=== PATIENT | male | born 1940 | race Caucasian/White ===

== ENCOUNTER 2017-03-04 11:47 | Inpatient (IN) ==
--- NOTE | 2017-03-04 13:02 | Emergency Department Note ---
Lisa Decker Mantricia, am scribing for, and in the presence of, Robert Sahni MD 12:51. Kaitlyn Decker James D, MD, personally performed the services described in this documentation, ascribed by Pari Gonzalez in my presence, and it is both accurate and complete . Arrival - Arrival Chief Complaint: Weakness Stated Complaint: SPITTING UP BLOOD, COUGHING, WEAKNESS, ABD SORE ED Nursing Triage Note: C/O WEAKNESS AND COUGHING UP BLOOD WITH ONSET LAST WEEK. Mode of Arrival: Ambulatory Limitations: No Limitations Source: Patient Time Seen by Provider: 03/04/17 12:44 - History of Present Illness HPI Narrative: Pt is a 76 y/o white male arriving to ED with c/o productive cough that onset a week ago. He states that he's been sick for a while now. The cough worsened in the last few days and today he began coughing up blood. He admits that he quit smoking 8 years ago. He reports no other complaints to ED. patient has a history of 80 pounds weight loss unintentional. Onset (ago): week(s) Consistency: constant Severity: mild Allergies/Adverse Reactions: Allergies Allergy/AdvReac Type Severity Reaction Status Date / Time No Known Allergies Allergy Unverified 05/21/16 23:06 Home Medications: Home Medications Medication Instructions Recorded Confirmed Type Albuterol Inhaler [Proventil 2 puff INH Q4H PRN 05/22/16 07/06/16 History Inhaler] Magnesium Oxide 800 mg PO DAILY 05/22/16 07/06/16 History Nitroglycerin Sl Tab [Nitrostat] 0.4 mg SL Q5M PRN 05/22/16 07/06/16 History [place]-3 Fatty Acids [Fish Oil 2,000 mg PO BID 05/22/16 07/06/16 History Concentrate] Tamsulosin HCl 0.8 mg PO BEDTIME 05/22/16 07/06/16 History Zinc Sulfate 220 mg PO DAILY 05/22/16 07/06/16 History Review of System - Review of System 12 point system: reviewed and no additional remarkable complaints except as stated - Review of System Constitutional: Absent: chills, diaphoresis Eyes: Absent: discharge, pain Respiratory: Present: cough (with blood) Cardiovascular: Absent: chest pain, palpitations Gastrointestinal: Absent: abdominal pain, nausea, vomiting Medical,Surgical,& Family Hx - Medical History Neurology: History of: Peripheral Neuropathy HEENT: History of: Eye Problem (redness to west eyes) Respiratory: History of: COPD Genitourinary: History of: Prostate Problems Musculoskeletal: History of: Back/Neck Problems - Surgical History Cardiac Surgeries: Sugical HX of: Cardiac Catheterization (2007) - Family History Family History: Reports;: Family Heart Disease - Social History Smoking Status: Current every day smoker Frequency of Alcohol Use: None Type of Drug Use: None Exam Physical Examination: GENERAL: This is a well-nourished, well-developed male in no apparent distress. VITAL SIGNS: HEENT: Head is normocephalic and atraumatic. Pupils are equally round and reactive to light. Extraocular movement are intact. Oropharynx is benign with moist mucous membranes. NECK: Neck is soft and supple without tenderness. There are no masses. There is no lymphadenopathy. LUNGS: Lungs are clear to auscultation bilaterally. Chest rises symmetrically. There is no chest wall tenderness. CV: Heart is regular rate and rhythm without murmurs, rubs, or gallops. ABDOMEN: Abdomen is soft, non-tender to palpation. There are no abnormal masses palpated. There is no organomegaly. Bowel sounds are present and active. SKIN: Skin is warm and dry. No rash. EXTREMITIES: Patient has full range of motion without tenderness. There is no pedal edema. NEUROLOGIC: Awake, alert, and oriented x4. Cranial nerves II through XII are grossly intact. There are no motorsensory deficits. PSYCHIATRIC: Normal affect. Normal mood. Vital Signs: Vital Signs Temperature 99.7 F H 03/04/17 11:55 Pulse Rate 94 H 03/04/17 11:55 Respiratory Rate 20 03/04/17 11:55 Blood Pressure 131/88 03/04/17 11:55 O2 Sat by Pulse Oximetry 91 L 03/04/17 11:55 Course - Consultations Consultation #1: Discussed with Dr. Garcia. He will be seen in the emergency department. Consider EKOS. Time: 14:27 Consultation #2: Discussed with hospitalist. He will be admitted to their service. Time: 14:59 Results - Labs CBC & BMP: 03/04/17 13:23 03/04/17 13:23 Lab Results: I have reviewed the patients labs - EKG EKG results: interpreted by ERMD - Diagnostic Findings Procedure: Chest x-ray: image reviewed by me (Left pleural effusion, increased pulmonary markings bilaterally.), CT - chest: image reviewed by me (Bilateral pulmonary emboli) Disposition Clinical Impression: Hemoptysis, Pulmonary thromboembolism Case discussed with: patient Disposition: Still a Patient Condition: Stable Time of Disposition: 14:27
--- NOTE | 2017-03-04 13:18 | XRay Report ---
Exam: Chest 2 views Date: March 04, 2017 at 12:56 PM Comparison: Right rib x-rays July 06, 2016 Reason: Cough Findings: The cardiac silhouette is normal in size. There are minimal opacities within both lower lung zones. This is favored to represent atelectasis and/or scarring, but there could also be pneumonia within the left lower lung zone. No pneumothorax is identified, but there is minimal left pleural fluid and possible minimal right pleural fluid. No acute osseous process is seen. Impression: 1. There are minimal opacities within both lower lung zones, mainly on the left. This likely represents atelectasis and/or scarring, but there could also be pneumonia on the left. 2. Minimal left pleural fluid and possible minimal right pleural fluid. PROCEDURE INTERPRETED AT [facility] [place] DEPARTMENT OF RADIOLOGY Final Report Signed by: Dr. Loy Moore
[2017-03-04 13:26] LABS: Basophils # 0.1 10*3/uL (0.0-0.2); Basophils % 0.6 % (0.0-0.8); Eosinophils # 0.2 10*3/uL (0.0-0.87); Eosinophils % 1.3 % (0.00-10.9); Hemoglobin 15.1 GM/DL (14.0-18.0); Immature Granulocytes % 0.3 %; Immature Granulocytes Absolute 0.04 #; Lymphocytes # 1.7 10*3/uL (1.4-4.0); Lymphocytes % 14.3 % (21.2-54.2); Mean Corpuscular HGB Conc 34.3 GM/DL (32-36); Mean Corpuscular Hemoglobin 31 PG (27-34); Mean Corpuscular Volume 91.1 FL (87-102); Monocytes # 1.2 10*3/uL (0.11-0.8); Monocytes % 10.2 % (1.7-12.7); Neutrophils # 8.9 10*3/uL (1.4-7.4); Neutrophils % 73.3 % (38.7-73.9); Platelet Count 185 T/CUMM (130-400); Red Blood Count 4.83 MC/CUMM (3.8-5.5); White Blood Count 12.2 T/CUMM (4-12)
[2017-03-04 13:36] LABS: INR 1.1; PT Patient Result 12.1 SECS; Partial Thromboplastin Time 32.8 SECS (0-40)
[2017-03-04 14:06] LABS: Albumin 3.2 G/DL (3.4-5.0); Calcium 8.7 MG/DL (8.5-10.1); Osmolality,Calculated 276.5 MOS/KG (273-304); Potassium 4.1 MMOL/L (3.5-5.1); Total Protein 6.2 G/DL (6.4-8.3)
--- NOTE | 2017-03-04 14:42 | CT Report ---
Exam: CT chest w con Date: 03/04/2017 12:48 PM Comparison: Chest x-ray 03/04/2017 Indication: Hemoptysis Technique:[Sequential axial scans of the chest were obtained following the injection of 80 cc Omnipaque 350. Coronal and sagittal 2-D reconstructions were obtained. Total DLP: 308.70.] Findings: The heart is enlarged with coronary artery calcifications/stents. No evidence of aortic dissection. Multiple filling defects are identified in the pulmonary arteries bilaterally. Saddle emboli in the distal main pulmonary arteries. Thrombus extends into the lobar, segmental, subsegmental pulmonary arteries with involvement of all lobes. Small pleural effusions are noted with pleural-based parenchymal findings in the lower lobes, especially the left and the and smaller findings in the lingula and right middle lobe. Bullous emphysema with predominant paraseptal emphysema. No chest lymphadenopathy. Impression: Extensive bilateral pulmonary emboli with associated small pleural effusions and findings consistent with pulmonary infarction. It is difficult to exclude other pleural-based pathology and short-term follow-up CT may be helpful for further evaluation. Underlying bullous emphysema. Coronary artery calcifications/stents. Findings were discussed with patient's nurse at 2:35 PM on 03/04/2017. Critical test results This CT exam was performed using one or more the following dose reduction techniques: Automated exposure control, adjustment of the MA and/or KV according to patient size, or use of iterative reconstruction technique. PROCEDURE INTERPRETED AT [facility] DEPARTMENT OF RADIOLOGY Final Report Signed by: Dr. Isha Wang
--- NOTE | 2017-03-04 14:56 | Cardiology Consult Note ---
<Valarie Solis E - Last Filed: 03/04/17 15:21> Assessment and Plan - Time spent with patient Time spent with patient: Greater than 30 minutes Time spent discussing smoking cessation with patient: 3 to 10 minutes (1) CAD (coronary artery disease) Status: Chronic Assessment and plan: SEE PLAN OF CARE LISTED BELOW Current Visit: Yes (2) Hypertension Status: Chronic Assessment and plan: SEE PLAN OF CARE LISTED BELOW Current Visit: Yes (3) Dyslipidemia Status: Chronic Assessment and plan: SEE PLAN OF CARE LISTED BELOW Current Visit: Yes (4) Ischemic cardiomyopathy Status: Chronic Assessment and plan: SEE PLAN OF CARE LISTED BELOW Current Visit: Yes (5) Tobacco abuse Status: Chronic Assessment and plan: SEE PLAN OF CARE LISTED BELOW Current Visit: Yes (6) Edema Status: Chronic Assessment and plan: SEE PLAN OF CARE LISTED BELOW Current Visit: Yes (7) Hemoptysis Status: Acute Assessment and plan: SEE PLAN OF CARE LISTED BELOW Current Visit: Yes (8) Pulmonary thromboembolism Status: Acute Assessment and plan: SEE PLAN OF CARE LISTED BELOW Current Visit: Yes History of Present Illness - Data of Consult Patient: new to practice Consult date: 03/04/17 Requesting Physician: Robert Sahni - Consult Narrative Reason for consult: PE, hemoptysis History of present illness: [employer]LE [employer]: (NEW) DR. TINOCO Mr. Bradshaw, 76WM, is not attached to a wax cutter. Risk factors include: known CAD (S/P PCI LAD December [address] Cowan), dyslipidemia, tobaccoism. History of mild ischemic cardiomyopathy, chronic pain. Patient presented to the emergency department at [facility] today after experiencing hemoptysis this morning. Patient has been short of breath and fatigued for approximately 7 years. Approximately 2 months ago his shortness of breath worsened but chose not to seek medical attention until this morning when he began to experience blood tinged sputum with coughing. He reported to the emergency department and, by CT chest, was found to have extensive bilateral pulmonary emboli with associated small pleural effusions. Abnormal CT. (See report). Patient acknowledges he has had chills for the past several months. He reports a 90 pound weight loss occurring approximately 2 years ago. He states he intentionally changed his diet for 3 months, lost 90 pounds and then return to his usual diet with no additional weight loss. He does not have a primary care provider. He does have an extensive history of tobaccoism but reports he has not been smoking the past several years. He is having no chest pain, heaviness, tightness. He previously saw Dr. Cowan then transitioned to Dr. Simpson. He has not followed up with any wax cutter in over 5 years. Patient has had bilateral lower extremity edema since taking Lyrica for neuropathy several years ago. He states his left lower extremity has always been more edematous than the right lower extremity. He has never been tested for DVT. He states he is statin intolerant but cannot elaborate. Echocardiogram has been ordered as well as venous dopplers of bilateral lower extremities. Dr. Tinoco has seen, evaluated the patient and the CT chest. He is not a candidate for EKOs and we cardiology will be happy to follow along as needed. ASSESSMENT/PLAN: 1. BILATERAL PULMONARY EMBOLI - See above plan of care. WIll need formal anti -coagulation 2. KNOWN CAD - S/P LAD 2006. (See [facility] report dictated below) 3. HYPERTENSION - will adjust medications accordingly during the hospitalization 4. DYSLIPIDEMIA - reports statin intolerance. Will check a fasting lipid profile tomorrow morning. 5. EDEMA - venous ultrasound bilateral lower extremities 6. TOBACCOISM -greater than 5 minutes was spent today discussing the merits of tobacco cessation 7. ISCHEMIC CARDIOMYOPATHY - last echocardiogram on records reveals an EF of 40%. Echocardiogram has been ordered. December 21, 2016 [facility] Impression (Dr. Cowan): 1. Significant disease involving the proximal LAD after diagonal. Acute occlusion, acute ID 2. Significant disease involving a small diagonal 3. Mild to moderate disease involving the right coronary artery 4. Moderate global left ventricular systolic dysfunction with regional wall motion abnormalities of apical and inferoapical dyskinesis, EF 40% 5. Moderate elevation LVEDP CC: - Home Medications and Allergies Home Medications: Home Medications Medication Instructions Recorded Confirmed Type Albuterol Inhaler [Proventil 2 puff INH Q4H PRN 05/22/16 03/04/17 History Inhaler] Nitroglycerin Sl Tab [Nitrostat] 0.4 mg SL Q5M PRN 05/22/16 03/04/17 History [place]-3 Fatty Acids [Fish Oil 2,000 mg PO BID 05/22/16 03/04/17 History Concentrate] Tamsulosin HCl 0.8 mg PO QAM 05/22/16 03/04/17 History Zinc Sulfate 220 mg PO DAILY 05/22/16 03/04/17 History Finasteride 5 mg PO DAILY 03/04/17 03/04/17 History Magnesium Oxide 840 mg PO DAILY 03/04/17 03/04/17 History Pregabalin [Lyrica] 50 mg PO TID 03/04/17 03/04/17 History Allergies/Adverse Reactions: Allergies Allergy/AdvReac Type Severity Reaction Status Date / Time No Known Allergies Allergy Unverified 05/21/16 23:06 Review of systems: REVIEW OF SYSTEMS: See HPI - Constitutional Constitutional: Present: Fatigue. Chills, occasional night sweats. Absent: syncope, anorexia, night sweats - EENT Eyes: Absent: blurry vision, loss of vision, diplopia Ears: Absent: decreased hearing, ear pain, ear discharge - Cardiovascular Cardiovascular: Denies chest pain with exertion. Dyspnea on exertion, edema, palpitations. Chest pain with deep breath. - Respiratory Respiratory: Present: JORDAN, cough and occasional hemoptysis per. Absent: wheezing - Gastrointestinal Gastrointestinal: Present: constipation. Absent: abdominal pain, hematemesis , hematochezia, melena, change in bowel habits, nausea - Genitourinary Genitourinary: Absent: difficulty urinating, dysuria, urinary hesitancy, flank pain - Musculoskeletal Musculoskeletal: Present: back pain Absent: joint swelling, muscle cramps, muscle weakness - Neurological Neurological: Present: normal gait without frequent falls. Absent: dizziness, hemiparesis - Psychiatric Psychiatric: Absent: anxiety, depression, difficulty concentrating - Endocrine Endocrine: Present: fatigue. Absent: cold intolerance, heat intolerance, polyuria, polyphagia, polydipsia - Hematologic/Lymphatic Hematologic/Lymphatic: Present: easy bruising. Absent: easy bleeding -Integumentary Integumentary: Absent: lesions, rashes, skin breakdown Medical,Surgical,& Family Hx - Medical History Cardio: History of: CAD, Hypertension, ID No history of: Cardiac Dysrhythmia Neurology: History of: Peripheral Neuropathy HEENT: History of: Eye Problem (redness to west eyes) Respiratory: History of: COPD Genitourinary: History of: Prostate Problems Musculoskeletal: History of: Back/Neck Problems - Surgical History Cardiac Surgeries: Sugical HX of: Cardiac Catheterization (2007) - Family History Family History: Reports;: Family Heart Disease - Social History Smoking Status: Current every day smoker Have you smoked in the last 12 months: Yes Time spent discussing smoking cessation with patient: 3 to 10 minutes Frequency of Alcohol Use: None Type of Drug Use: None Physical Examination Vital Signs Temp Pulse Resp BP Pulse Ox 99.7 F H 94 H 20 131/88 91 L 03/04/17 11:55 03/04/17 11:55 03/04/17 11:55 03/04/17 11:55 03/04/17 11:55 General: [Appears well with no apparent distress.] [Pleasant and cooperative. ] [Appears comfortable.] HEENT: [PERRL, normocephalic, atraumatic. Poor dentition noted. Mucous membranes moist. No jaundice noted. Conjunctiva moist and clear, sclerae anicteric] Neck: No JVD/HJR, no thyromegaly or lymphadenopathy noted. No carotid bruit appreciated Cardiac: [Regular rate and rhythm.] [No obvious murmur rub or gallop.] Lungs: [Clear to auscultation without accessory muscle use to assist the respiratory pattern.] Oxygen in use via nasal cannula Abdomen: Soft, bowel sounds normoactive. Nontender and nondistended. No abdominal bruit or thrill noted. No masses noted. Musculoskeletal: No fluid collection. Decreased range of motion is noted. Extremities: No clubbing, cyanosis noted. [Left lower extremity edema 2+, right lower extremity edema 1+] Upper extremity pulses 2+. Lower extremity pulses 1+. Capillary refill less than 3 seconds. Skin: No unusual lesions or rashes. No skin breakdown appreciated. Neuro: Awake, alert and oriented 3. Moves all extremities well without hemiparesis or paralysis. No essential tremor is appreciated. Result/EKG - Labs CBC & BMP: 03/04/17 13:23 03/04/17 13:23 Lab Results: I have reviewed the past 24 hour labs Labs: Laboratory Results - last 24 hr 03/04/17 03/04/17 03/04/17 13:23 13:23 13:23 WBC 12.2 H RBC 4.83 Hgb 15.1 Hct 44.0 MCV 91.1 MCH 31 MCHC 34.3 RDW 13.0 Plt Count 185 MPV 9.0 L Neut % (Auto) 73.3 Lymph % (Auto) 14.3 L [place] % (Auto) 10.2 Eos % (Auto) 1.3 Baso % (Auto) 0.6 Neut # (Auto) 8.9 H Lymph # (Auto) 1.7 [place] # (Auto) 1.2 H Eos # (Auto) 0.2 Baso # (Auto) 0.1 Immature Gran % 0.3 Nucleated RBC % 0.0 Immature Gran # 0.04 Nucleated RBCs # 0.00 INR 1.1 PT Patient/Control Mix 12.1 Circ Anticoag PTT 32.8 Sodium 139 Potassium 4.1 Chloride 105 Carbon Dioxide 27 Anion Gap 11.1 BUN 12 Creatinine 1.20 GFR Calculation 72 BUN/Creatinine Ratio 10.00 Glucose 104 Calculated Osmolality 276.5 Calcium 8.7 Total Bilirubin 1.00 AST 13 ALT 17 Alkaline Phosphatase 66 Total Protein 6.2 L Albumin 3.2 L Globulin 3.0 Albumin/Globulin Ratio 1.0 L - Diagnostic Findings Procedure: Chest x-ray: report reviewed by me, CT - chest: report reviewed by me , Ultrasound: pending - EKG EKG results: interpreted by me EKG shows: sinus rhythm <Dhiraj Tinoco - Last Filed: 03/05/17 06:45> History of Present Illness - Consult Narrative History of present illness: Mr. Bradshaw is a 76 year old male CC: Annabella Her MD Physical Examination Vital Signs Temp Pulse Resp BP Pulse Ox 99.7 F H 94 H 20 131/88 91 L 03/04/17 11:55 03/04/17 11:55 03/04/17 11:55 03/04/17 11:55 03/04/17 11:55 Result/EKG - Labs CBC & BMP: 03/05/17 04:12 03/05/17 04:12 Labs: Laboratory Results - last 24 hr 03/04/17 03/04/17 03/04/17 13:17 13:23 13:23 WBC 12.2 H RBC 4.83 Hgb 15.1 Hct 44.0 MCV 91.1 MCH 31 MCHC 34.3 RDW 13.0 Plt Count 185 MPV 9.0 L Neut % (Auto) 73.3 Lymph % (Auto) 14.3 L [place] % (Auto) 10.2 Eos % (Auto) 1.3 Baso % (Auto) 0.6 Neut # (Auto) 8.9 H Lymph # (Auto) 1.7 [place] # (Auto) 1.2 H Eos # (Auto) 0.2 Baso # (Auto) 0.1 Immature Gran % 0.3 Nucleated RBC % 0.0 Immature Gran # 0.04 Nucleated RBCs # 0.00 INR 1.1 PT Patient/Control Mix 12.1 Circ Anticoag PTT 32.8 Sodium Potassium Chloride Carbon Dioxide Anion Gap BUN Creatinine GFR Calculation BUN/Creatinine Ratio Glucose Calculated Osmolality Calcium Magnesium Total Bilirubin AST ALT Alkaline Phosphatase Total Protein Albumin Globulin Albumin/Globulin Ratio Triglycerides 96 Cholesterol 168 LDL Cholesterol 125.0 VLDL Cholesterol 19.2 HDL Cholesterol 31 L Heart Disease Risk Ratio 5.42 Urine Color Urine Appearance Urine pH Ur Specific [place] Urine Protein Urine Glucose (UA) Urine Ketones Urine Blood Urine Nitrate Urine Bilirubin Urine Urobilinogen Urine Leukocytes Urine RBC Urine WBC Ur Culture Indicated? 03/04/17 03/04/17 03/05/17 13:23 22:40 04:12 WBC 9.7 RBC 4.74 Hgb 15.0 Hct 44.1 MCV 93.0 MCH 32 MCHC 34.0 RDW 12.8 Plt Count 192 MPV 9.5 L Neut % (Auto) 66.7 Lymph % (Auto) 17.0 L [place] % (Auto) 10.3 Eos % (Auto) 5.0 Baso % (Auto) 0.7 Neut # (Auto) 6.5 Lymph # (Auto) 1.7 Crook # (Auto) 1.0 H Eos # (Auto) 0.5 Baso # (Auto) 0.1 Immature Gran % 0.3 Nucleated RBC % 0.0 Immature Gran # 0.03 Nucleated RBCs # 0.00 INR PT Patient/Control Mix Circ Anticoag PTT Sodium 139 Potassium 4.1 Chloride 105 Carbon Dioxide 27 Anion Gap 11.1 BUN 12 Creatinine 1.20 GFR Calculation 72 BUN/Creatinine Ratio 10.00 Glucose 104 Calculated Osmolality 276.5 Calcium 8.7 Magnesium Total Bilirubin 1.00 AST 13 ALT 17 Alkaline Phosphatase 66 Total Protein 6.2 L Albumin 3.2 L Globulin 3.0 Albumin/Globulin Ratio 1.0 L Triglycerides Cholesterol LDL Cholesterol VLDL Cholesterol HDL Cholesterol Heart Disease Risk Ratio Urine Color Yellow Urine Appearance Clear Urine pH 7.0 Ur Specific [place] 1.019 Urine Protein Negative Urine Glucose (UA) Negative Urine Ketones Negative Urine Blood Moderate Urine Nitrate Negative Urine Bilirubin Negative Urine Urobilinogen < 2.0 H Urine Leukocytes Negative Urine RBC 7 Urine WBC 1 Ur Culture Indicated? Not indicated 03/05/17 03/05/17 04:12 04:12 WBC RBC Hgb Hct MCV MCH MCHC RDW Plt Count MPV Neut % (Auto) Lymph % (Auto) Cro[place] % (Auto) Eos % (Auto) Baso % (Auto) Neut # (Auto) Lymph # (Auto) [place] # (Auto) Eos # (Auto) Baso # (Auto) Immature Gran % Nucleated RBC % Immature Gran # Nucleated RBCs # INR PT Patient/Control Mix Circ Anticoag PTT Sodium 139 139 Potassium 4.2 4.4 Chloride 104 104 Carbon Dioxide 27 27 Anion Gap 12.2 12.4 BUN 14 15 Creatinine 1.20 1.20 GFR Calculation 73 73 BUN/Creatinine Ratio 11.00 12.00 Glucose 102 104 Calculated Osmolality 277.5 277.5 Calcium 8.3 L 8.3 L Magnesium 2.2 Total Bilirubin AST ALT Alkaline Phosphatase Total Protein Albumin Globulin Albumin/Globulin Ratio Triglycerides 107 Cholesterol 165 LDL Cholesterol 120.0 VLDL Cholesterol 21.4 HDL Cholesterol 26 L Heart Disease Risk Ratio 6.35 Urine Color Urine Appearance Urine pH Ur Specific [place] Urine Protein Urine Glucose (UA) Urine Ketones Urine Blood Urine Nitrate Urine Bilirubin Urine Urobilinogen Urine Leukocytes Urine RBC Urine WBC Ur Culture Indicated?
[2017-03-04] MEDS ORDERED: DOCUSATE SODIUM 100 MG CAPSULE PO PRN (15:38)
[2017-03-04] MEDS ORDERED: ONDANSETRON 4 MG/2 ML VIAL IV PRN (15:38)
[2017-03-04] MEDS ORDERED: PROMETHAZINE 25 MG/1 ML VIAL IM PRN (15:38)
[2017-03-04] MEDS ORDERED: diphenhydrAMINE CAP 25 MG CAPSULE PO PRN (15:38)
[2017-03-04] MEDS ORDERED: MORPHINE 2 MG/1 ML SYRINGE IV PRN (15:38)
[2017-03-04] MEDS ORDERED: ACETAMINOPHEN 325 MG TABLET PO PRN ×2 (15:38)
[2017-03-04] MEDS ORDERED: guaiFENesin/DM ER 600-30 MG TABLET PO PRN (15:38)
[2017-03-04] MEDS ORDERED: NON-FORMULARY MEDICATION (Albuterol Inhaler 2 PUFF) INH PRN (15:42)
--- NOTE | 2017-03-04 15:56 | Ultrasound Report ---
Referring physician: Annabella Her MD Exam: Bilateral lower extremity venous ultrasound Date: March 04, 2017 Comparison: None Reason: Lower extremity edema Technique: Duplex scan of the bilateral lower extremity veins was performed using B-Mode/grayscale imaging and Doppler spectral analysis and color flow. Ultrasound images were captured and stored. Findings: There is no evidence of thrombus within the left or right common femoral veins, saphenous veins, superficial femoral veins or popliteal veins. Normal compression and augmentation are present throughout. Normal color flow and spectral analysis are observed. Impression: No evidence of deep venous thrombosis within either lower extremity. PROCEDURE INTERPRETED AT [facility] DEPARTMENT OF RADIOLOGY Final Report Signed by: Dr. Loy Moore
[2017-03-04 16:00] LABS: Risk Ratio 5.42; VLDL CHOLESTEROL 19.2 MG/DL
--- NOTE | 2017-03-04 16:18 | Hospitalist History & Physical ---
Assessment and Plan - Time spent with patient Time spent with patient: Greater than 30 minutes (1) Hemoptysis Status: Acute Assessment and plan: 76-year-old white male with history of tobacco abuse, CAD status post stenting 10 years ago, and proximal date hypertrophy admitted by the hospitalist service with hemoptysis due to pulmonary thromboembolism bilaterally. Cardiology is already been consulted and he is not a candidate for EKOS. Patient will be started on Eliquis 10 mg p.o. twice daily and admitted to the unit overnight for observation. With patient's 80 pound weight loss we will go ahead and check a CT of the abdomen and pelvis with contrast in the morning due to patient already being exposed to contrast today. Will restart his home medicines and monitor his breathing and blood pressures. Echo has been ordered and is pending. Pulmonary has also been consulted for evaluation. Dr. Sherman will see and examined patient and further recommendations to follow. Current Visit: Yes (2) Pulmonary thromboembolism Status: Acute Current Visit: Yes (3) CAD (coronary artery disease) Status: Chronic Current Visit: Yes History of Present Illness Chief complaint: Coughing up blood History of present illness: Mr. Bradshaw is a 76 year old white male with history of chronic tobacco abuse, dysuria and CAD presenting to the ED with 1 week history of progressive cough and hemoptysis. Patient states he has been sick for a while and has lost approximately 80 pounds over the last year. He had a CT and abdomen and pelvis done on 05/21/2016 that showed prostate enlargement, sigmoid diverticulosis. He states he has had a cough for several months but it worsened in the last week and this morning he woke up coughing up blood. Patient has had bilateral lower extremity swelling for the last several years. Patient denies headache and blurry vision, chest pain, abdominal pain, constipation or diarrhea. Patient CT of the chest shows extensive bilateral pulmonary emboli with associated small pleural effusions and findings consistent with pulmonary infarction. He also has underlying bullous emphysema. His lower extremity Dopplers are negative for DVT. Cardiology has already seen the patient and feel he is not a candidate for EKOS. Patient's case has been discussed with Dr. Sahni the ED physician and Dr. Sherman the admitting hospitalist and it was agreed patient would be admitted for further evaluation and treatment. Home Medications Medication Instructions Recorded Confirmed Type Albuterol Inhaler [Proventil 2 puff INH Q4H PRN 05/22/16 07/06/16 History Inhaler] Magnesium Oxide 800 mg PO DAILY 05/22/16 07/06/16 History Nitroglycerin Sl Tab [Nitrostat] 0.4 mg SL Q5M PRN 05/22/16 07/06/16 History [place]-3 Fatty Acids [Fish Oil 2,000 mg PO BID 05/22/16 07/06/16 History Concentrate] Tamsulosin HCl 0.8 mg PO BEDTIME 05/22/16 07/06/16 History Zinc Sulfate 220 mg PO DAILY 05/22/16 07/06/16 History Allergies Allergy/AdvReac Type Severity Reaction Status Date / Time No Known Allergies Allergy Unverified 05/21/16 23:06 Medical,Surgical,& Family Hx - Medical History Neurology: History of: Peripheral Neuropathy HEENT: History of: Eye Problem (redness to west eyes) Respiratory: History of: COPD Genitourinary: History of: Prostate Problems Musculoskeletal: History of: Back/Neck Problems - Surgical History Cardiac Surgeries: Sugical HX of: Cardiac Catheterization (2007) Abdominal Surgeries: Surgical HX of: Cholecystectomy - Family History Family History: Reports;: Family Heart Disease - Social History Smoking Status: Former smoker Frequency of Alcohol Use: None Type of Drug Use: None Marital Status: Lives With:: Alone Functional capacity: independent ambulation Review of systems: A complete 10 system review of systems was obtained and pertinent positives and negatives per HPI Exam - Constitutional Vitals: Period Temp Pulse Resp BP Sys/Guerra Pulse Ox Last 24 Hr 99.7 F 94 20 131/88 91 Exam: Constitutional System: No distress. No tremulousness. Head: Normocephalic, atraumatic. Ears, Nose and Throat System: No evidence of Otitis or Mastoiditis. No epistaxis or discharge Eyes System: Pupils equal, round, and reactive. Extraocular muscles intact. Neck: Supple, without adenopathy, No jugular venous distention. No thyromegaly, neck mass, or prior surgery apparent. Respiratory System: Chest small crackles to auscultation. Cardiovascular System: Heart with regular rate and rhythm. No murmur. GI System: Abdomen soft, nontender. Normo active bowel sounds present. Musculoskeletal System: limbs with moderate pedal edema. Diminished distal pulses. Neurological System: No discernable sensory deficit. No aphasia Psychiatric System: Conversation is rational Results - Labs CBC & BMP: 03/04/17 13:23 03/04/17 13:23 Lab Results: I have reviewed the past 24 hour labs - Diagnostic Findings Procedure: Chest x-ray: report reviewed by me (Minimal opacities within both lower lung zones mainly on the left. Likely represents atelectasis and/or scarring could be pneumonia. Minimal left pleural fluid and possible minimal right pleural fluid), CT - chest: report reviewed by me (Extensive bilateral pulmonary emboli with associated small pleural effusions and findings consistent with pulmonary infarction. Is difficult to exclude other pleural- based pathology and short-term follow-up CT may be helpful. Underlying bullous emphysema. Coronary artery calcification/stents), Ultrasound: report reviewed by me (Negative for DVT)
[2017-03-04] MEDS: SODIUM CHLORIDE 0.9% 1,000 ML IV SCH (17:15)
[2017-03-04] MEDS ORDERED: APIXABAN 5 MG TABLET PO STA (17:22)
--- NOTE | 2017-03-04 17:27 | Pulmonology Consult Note ---
Assessment and Plan (1) Pneumonia Status: Acute Assessment and plan: Patient has had purulent sputum and low-grade fever. Has an infiltrate at the left base. Certainly this could be an area of pulmonary infarction however I do think we need to cover with antibiotics. Current Visit: No (2) Hemoptysis Status: Acute Assessment and plan: Likely this is due to pulmonary thromboembolic disease. Should not increase with anticoagulants if that is the case. Current Visit: Yes (3) Pulmonary thromboembolism Status: Acute Assessment and plan: Bilateral lower lobe emboli. He does not have hypotension. We need to check echo to see if he has pulmonary hypertension or evidence of right ventricular strain. If that is the case I will treat with Activase. Otherwise we will treat with Eliquis. He is getting the first dose now. Current Visit: Yes (4) CAD (coronary artery disease) Status: Chronic Assessment and plan: History of previous coronary stent. Nothing that sounds like angina at present Current Visit: Yes History of Present Illness Chief complaint: Shortness of breath, hemoptysis History of present illness: Mr. Bradshaw is a 76 year old male who has not felt well for several months. The last week or so he has had a cough congestion and sputum production. He started coughing up blood today. Came to emergency room and a CT angiogram of his lungs show bilateral lower lobe pulmonary emboli. He was not hypotensive. Cardiology has seen and did not recommend EK OS. Patient has had some purulent sputum and a history of smoking. He said he stopped about 12 or 15 years ago. He had a bronchoscopy at that time. That was done here by Dr. Kinsey. He does not know all the details of that. Subsequently had a cardiac stent about 12 years ago. He has not had any fever or chills. He has had some unintended weight loss. Home Medications Medication Instructions Recorded Confirmed Type Albuterol Inhaler [Proventil 2 puff INH Q4H PRN 05/22/16 03/04/17 History Inhaler] Nitroglycerin Sl Tab [Nitrostat] 0.4 mg SL Q5M PRN 05/22/16 03/04/17 History [place]-3 Fatty Acids [Fish Oil 2,000 mg PO BID 05/22/16 03/04/17 History Concentrate] Tamsulosin HCl 0.8 mg PO QAM 05/22/16 03/04/17 History Zinc Sulfate 220 mg PO DAILY 05/22/16 03/04/17 History Finasteride 5 mg PO DAILY 03/04/17 03/04/17 History Magnesium Oxide 840 mg PO DAILY 03/04/17 03/04/17 History Pregabalin [Lyrica] 50 mg PO TID 03/04/17 03/04/17 History Allergies Allergy/AdvReac Type Severity Reaction Status Date / Time No Known Allergies Allergy Unverified 05/21/16 23:06 12 point system: reviewed and no additional remarkable complaints except as stated - Constitutional Constitutional: Present: anorexia, weight loss - Cardiovascular Cardiovascular: Present: dyspnea, dyspnea on exertion - Respiratory Respiratory: Present: cough, hemoptysis, dyspnea on exertion, pain on inspiration Exam (Pulmonay) H&P - Constitutional Vitals: Period Temp Pulse Resp BP Sys/Guerra Pulse Ox Last 24 Hr 99.7 F 94 20 131/88 91 Exam: Vital signs are normal except temperature of 90.7. Pupils react to light. Throat is clear. Neck is supple no bruits. Chest I hear some rales and rhonchi at the left base. Heart normal rate and rhythm no murmurs no rubs no gallops. Abdomen soft nontender no masses. Bowel sounds present. Extremities no clubbing cyanosis edema. Calves nontender. He does have a trace of edema in both feet. Medical,Surgical,& Family Hx - Medical History Cardio: History of: CAD, Hypertension, CT No history of: Cardiac Dysrhythmia Neurology: History of: Peripheral Neuropathy HEENT: History of: Eye Problem (redness to west eyes) Respiratory: History of: COPD Genitourinary: History of: Prostate Problems Musculoskeletal: History of: Back/Neck Problems - Surgical History Cardiac Surgeries: Sugical HX of: Cardiac Catheterization (2007) Abdominal Surgeries: Surgical HX of: Cholecystectomy - Family History Family History: Reports;: Family Heart Disease - Social History Smoking Status: Former smoker Frequency of Alcohol Use: None Type of Drug Use: None Results - Labs CBC & BMP: 03/04/17 13:23 03/04/17 13:23 Lab Results: I have reviewed the past 24 hour labs - Diagnostic Findings Procedure: Chest x-ray: image reviewed by me (Left basilar infiltrate), CT - chest: image reviewed by me (Bilateral lower lobe pulmonary emboli. Infiltrate left base with small pleural effusion on that side. No masses seen.)
[2017-03-04] MEDS: PANTOPRAZOLE 40 MG TABLET PO SCH (17:32)
[2017-03-04] MEDS: APIXABAN 5 MG TABLET PO SCH (17:39)
[2017-03-04] MEDS: cefTRIAXone 1,000 MG in SODIUM CHLORIDE 0.9% 100 ML IV SCH (18:16)
[2017-03-04] MEDS: TAMSULOSIN 0.4 MG CAPSULE PO SCH (21:17)
[2017-03-04] MEDS: CARVEDILOL 6.25 MG TABLET PO SCH (21:17)
[2017-03-04 23:21] LABS: Apearance,Urine CLEAR (Clear); Bilirubin,Urine Negative (Negative); Blood, Urine Moderate mg/dL (Negative); Glucose,Urine (UA) Negative (Negative); Ketones,Urine Negative (Negative); Nitrite,Urine Negative (Negative); Protein,Urine Negative; RBC,Urine 7 /HPF (0-4); Urine Color Yellow (Yellow); Urine Specific Gravity 1.019 (1.001-1.035); Urine Urobilinogen < 2.0 EU/DL (0.2-1.0); WBC,Urine 1 /HPF (0-6)
[2017-03-05 05:04] LABS: Basophils % 0.7 % (0.0-0.8); Hematocrit 44.1 VOL% (42.0-52.0); Immature Granulocytes % 0.3 %; Mean Corpuscular Hemoglobin 32 PG (27-34); Mean Platelet Volume 9.5 FL (9.6-12.0); Monocytes % 10.3 % (1.7-12.7); Neutrophils # 6.5 10*3/uL (1.4-7.4); Neutrophils % 66.7 % (38.7-73.9); Platelet Count 192 T/CUMM (130-400); Red Blood Count 4.74 MC/CUMM (3.8-5.5); Red Cell Distribution Width 12.8 % (9.3-17.3); White Blood Count 9.7 T/CUMM (4-12)
[2017-03-05 05:05] LABS: Basophils # 0.1 10*3/uL (0.0-0.2); Eosinophils # 0.5 10*3/uL (0.0-0.87); Immature Granulocytes Absolute 0.03 #; Lymphocytes # 1.7 10*3/uL (1.4-4.0)
[2017-03-05 05:29] LABS: Calcium 8.3 MG/DL (8.5-10.1); Osmolality,Calculated 277.5 MOS/KG (273-304); Potassium 4.2 MMOL/L (3.5-5.1)
[2017-03-05 05:38] LABS: Calcium 8.3 MG/DL (8.5-10.1); Magnesium 2.2 MG/DL (1.8-2.4); Osmolality,Calculated 277.5 MOS/KG (273-304); Potassium 4.4 MMOL/L (3.5-5.1); Risk Ratio 6.35; VLDL CHOLESTEROL 21.4 MG/DL
[2017-03-05] MEDS: SODIUM CHLORIDE 0.9% 1,000 ML IV SCH ×2 (06:32→15:54)
--- NOTE | 2017-03-05 06:39 | XRay Report ---
XR chest 2V Date: 03/05/2017 4:00 AM History: Shortness of breath Comparison: 03/04/2017 Technique: PA and lateral chest Findings: The heart is normal in size with coronary artery calcifications/stents. Persistent relative elevation of the left hemidiaphragm with adjacent atelectasis/infiltration. Stable mediastinum and osseous structures. Small right pleural effusion with minimal atelectasis at the right lung base. Impression: Persistent relative elevation of the left hemidiaphragm. Bibasilar atelectasis/infiltration with findings remaining more prominent on the left with small pleural effusions. Coronary artery calcifications/stents. PROCEDURE INTERPRETED AT [facility] DEPARTMENT OF RADIOLOGY Final Report Signed by: Dr. Isha Wang
--- NOTE | 2017-03-05 06:39 | ECHO Report ---
Edward Bradshaw Exam Date: 03/04/2017 19:09 Referring Physician: Technologist: Renetta De Anda RDCS Age: 76 Ht (in): 72 Wt (lb): 202 Gender: M Exam Location: [facility] Echo Indications: Shortness of breath, Pneumonia, Hemoptysis, Bilateral pulmonary emboli, CAD with previous stent, Essential (primary) hypertension, Ischemic cardiomyopathy, Edema, unspecified, Peripheral vascular disease, unspecified, Dyslipidemia BP: 129 / 77 HR: 73 Rhythm: Sinus Technical Quality: IMPRESSIONS Technically difficult study Mild to moderately reduced LV systolic function with ejection fraction estimated 35-40% with suggestion of increased apical hypokinesis Aortic sclerosis without stenosis Trace to mild tricuspid regurgitation with RVSP 39 mmHg plus RAP MEASUREMENTS (Male / Female) Normal Values 2D ECHO LV Diastolic Diameter PLAX 5.3 cm 4.2 - 5.9 / 3.9 - 5.3 cm LV Systolic Diameter PLAX 4.9 cm LV Fractional Shortening PLAX 7.5 % IVS Diastolic Thickness 0.9 cm 0.6 - 1.0 / 0.6 - 0.9 cm LVPW Diastolic Thickness 0.9 cm 0.6 - 1.0 / 0.6 - 0.9 cm RV Internal Dim ED PLAX 2.7 cm Aortic Root Diameter 3.3 cm LA Systolic Diameter LX 3.7 cm 3.0 - 4.0 / 2.7 - 3.8 cm DOPPLER TR Peak Velocity 312.0 cm/s TR Peak Gradient 38.9 mmHg FINDINGS Left Ventricle Normal left ventricular cavity size. Normal left ventricular wall thickness. Left ventricular ejection fraction is estimated at 30-35 %. Right Ventricle The right ventricle is normal in size and function. Right Atrium The right atrium is normal in size. Left Atrium The left atrium is normal in size. Mitral Valve Morphologically normal mitral valve. Trace mitral valve regurgitation. Aortic Valve Morphologically normal aortic valve without significant sclerosis or stenosis. There is no aortic regurgitation. Tricuspid Valve Morphologically normal tricuspid valve. Trace to mild tricuspid valve regurgitation. Tricuspid regurgitation velocities suggest a PAP of 49 mmHg. Pulmonic Valve Morphologically normal pulmonic valve without significant stenosis. There is no pulmonic regurgitation. Pericardium Normal pericardium without effusion. Aorta Normal ascending aorta dimension. Dhiraj Garcia (Electronically Signed) Final Date: 05 March 2017 06:38
--- NOTE | 2017-03-05 06:48 | CT Report ---
Referring physician: Annabella Her MD EXAM: CT abdomen and pelvis with contrast DATE: 03/05/2017 COMPARISON: 05/21/2016, CT chest 03/04/2017 REASON: Weight loss TECHNIQUE: Axial images of the abdomen and pelvis were obtained after administration of 100 cc of Omnipaque 350 IV contrast. Oral contrast was also administered. Coronal and sagittal reformatted images were also provided. Total DLP is 989.3 mGy*cm. FINDINGS: Evidence of bullous emphysema with small pleural effusions. Persistent parenchymal findings at the lung bases, especially in the left lower lobe. Coronary artery calcifications/stents. Elongation of the right lobe of the liver with no masses or dilated ducts in patient with prior cholecystectomy. The spleen, pancreas, adrenal glands, and kidneys are stable in appearance. No renal or ureteral calculi are identified. Minimal cortical scarring in the kidneys. Calcification in the wall of the nondilated abdominal aorta with no adjacent adenopathy. Left retroaortic renal vein. Limited oral contrast in the stomach with chronic elevation the left hemidiaphragm. No dilatation of the small bowel. Diverticulosis of the colon where there is also limited oral contrast. No evidence of diverticulitis, appendicitis, or free air. Minimal free fluid in the pelvis. The prostate measures 77 mm in diameter and indents the base the urinary bladder. There is retained contrast in the urinary bladder from the CT of the prior day. There is minimal diffuse bladder wall thickening. Degenerative changes are noted with chronic intraosseous pneumocyst neelam L2. IMPRESSION: Bullous emphysema small pleural effusions. Residual parenchymal findings at the visualized lung bases which appear fairly stable when compared to the CT of the prior day. Prior cholecystectomy. Cortical scarring in the kidneys with diffuse arterial calcifications including coronary artery calcifications with coronary artery stents. Chronic elevation of the left hemidiaphragm. Diverticulosis of the colon with limited evaluation of the bowel which contains limited oral contrast. Significant nonspecific enlargement of the prostate which indents the base of the urinary bladder. There is associated minimal diffuse bladder wall thickening. The CT exam was performed using one or more of the following dose reduction techniques: Automated exposure control and adjustment of the mA and/or kV according to patient size. PROCEDURE INTERPRETED AT [facility] DEPARTMENT OF RADIOLOGY Final Report Signed by: Dr. Isha Wang
--- NOTE | 2017-03-05 07:23 | Cardiology Progress Note ---
Assessment and Plan (1) Pulmonary thromboembolism Status: Acute Assessment and plan: March 04, 2017: 1. 76-year-old WM previous smoker with hypertension, dyslipidemia, known mild ischemic cardiomyopathy, status post DE and PCI in 2006 of LAD, now with progressive dyspnea on exertion with hemoptysis today bilateral pulmonary emboli noted on CT scan with at most mild right ventricular enlargement (not candidate for EKOS) 2. Echocardiogram showed EF 35-40% with some increased apical hypokinesis consistent with previous event in the LAD territory 3. We will continue Coreg 4. I had high intensity statin therapy 5. Start baby aspirin if he has no significant bleeding problems on high-dose Eliquis (10 mg twice daily started on admission) March 05, 2017: 1. Mr. Bradshaw is doing much better clinically, though he had a little hemoptysis during the night 2. Echocardiogram shows EF 35-40% (previously 40%) with history of DE and LAD stenting approximately 2006 3. Add low-dose NATALIIA inhibitor 4. Would start baby aspirin given his hematocrit is stable at 44% 5. He is not seeing cardiology in at least 5 years; will schedule for follow- up in 2-3 weeks time Current Visit: Yes (2) CAD (coronary artery disease) Status: Chronic Current Visit: Yes (3) Hypertension Status: Chronic Current Visit: Yes (4) Dyslipidemia Status: Chronic Current Visit: Yes (5) Ischemic cardiomyopathy Status: Chronic Current Visit: Yes Cardiology - PN: Subj Interval history: Mr. Bradshaw is feeling better with less shortness of breath. He reports a slight amount of hemoptysis during the night. He has never had any chest discomfort. He is not having dysrhythmia. He has no other complaints. Exam (Progress Note) - Constitutional Vitals: Period Temp Pulse Resp BP Sys/Guerra Pulse Ox Last 24 Hr 97.2 F-99.7 F 61-94 12-20 103-145/54-88 91-96 General appearance: normal weight, no acute distress - Head Head exam: Present: normal inspection, normocephalic, atraumatic - Neck Neck exam: Present: normal inspection - Respiratory Respiratory exam: Present: rhonchi. Absent: wheezes - Cardiovascular Cardiovascular exam: Present: regular rate and rhythm. Absent: diastolic murmur , rubs - GI/Abdominal GI/Abdominal exam: Present: soft. Absent: tenderness - Extremities Exam Extremities exam: Present: edema (Trace lower extremity edema) - Neurological Exam Neurological exam: Present: alert, oriented X3 Result/EKG - Labs CBC & BMP: 03/05/17 04:12 03/05/17 04:12 Labs: Laboratory Results - last 24 hr 03/04/17 03/04/17 03/04/17 13:17 13:23 13:23 WBC 12.2 H RBC 4.83 Hgb 15.1 Hct 44.0 MCV 91.1 MCH 31 MCHC 34.3 RDW 13.0 Plt Count 185 MPV 9.0 L Neut % (Auto) 73.3 Lymph % (Auto) 14.3 L [place] % (Auto) 10.2 Eos % (Auto) 1.3 Baso % (Auto) 0.6 Neut # (Auto) 8.9 H Lymph # (Auto) 1.7 [place] # (Auto) 1.2 H Eos # (Auto) 0.2 Baso # (Auto) 0.1 Immature Gran % 0.3 Nucleated RBC % 0.0 Immature Gran # 0.04 Nucleated RBCs # 0.00 INR 1.1 PT Patient/Control Mix 12.1 Circ Anticoag PTT 32.8 Sodium Potassium Chloride Carbon Dioxide Anion Gap BUN Creatinine GFR Calculation BUN/Creatinine Ratio Glucose Calculated Osmolality Calcium Magnesium Total Bilirubin AST ALT Alkaline Phosphatase Total Protein Albumin Globulin Albumin/Globulin Ratio Triglycerides 96 Cholesterol 168 LDL Cholesterol 125.0 VLDL Cholesterol 19.2 HDL Cholesterol 31 L Heart Disease Risk Ratio 5.42 Urine Color Urine Appearance Urine pH Ur Specific [place] Urine Protein Urine Glucose (UA) Urine Ketones Urine Blood Urine Nitrate Urine Bilirubin Urine Urobilinogen Urine Leukocytes Urine RBC Urine WBC Ur Culture Indicated? 03/04/17 03/04/17 03/05/17 13:23 22:40 04:12 WBC 9.7 RBC 4.74 Hgb 15.0 Hct 44.1 MCV 93.0 MCH 32 MCHC 34.0 RDW 12.8 Plt Count 192 MPV 9.5 L Neut % (Auto) 66.7 Lymph % (Auto) 17.0 L [place] % (Auto) 10.3 Eos % (Auto) 5.0 Baso % (Auto) 0.7 Neut # (Auto) 6.5 Lymph # (Auto) 1.7 [place] # (Auto) 1.0 H Eos # (Auto) 0.5 Baso # (Auto) 0.1 Immature Gran % 0.3 Nucleated RBC % 0.0 Immature Gran # 0.03 Nucleated RBCs # 0.00 INR PT Patient/Control Mix Circ Anticoag PTT Sodium 139 Potassium 4.1 Chloride 105 Carbon Dioxide 27 Anion Gap 11.1 BUN 12 Creatinine 1.20 GFR Calculation 72 BUN/Creatinine Ratio 10.00 Glucose 104 Calculated Osmolality 276.5 Calcium 8.7 Magnesium Total Bilirubin 1.00 AST 13 ALT 17 Alkaline Phosphatase 66 Total Protein 6.2 L Albumin 3.2 L Globulin 3.0 Albumin/Globulin Ratio 1.0 L Triglycerides Cholesterol LDL Cholesterol VLDL Cholesterol HDL Cholesterol Heart Disease Risk Ratio Urine Color Yellow Urine Appearance Clear Urine pH 7.0 Ur Specific [place] 1.019 Urine Protein Negative Urine Glucose (UA) Negative Urine Ketones Negative Urine Blood Moderate Urine Nitrate Negative Urine Bilirubin Negative Urine Urobilinogen < 2.0 H Urine Leukocytes Negative Urine RBC 7 Urine WBC 1 Ur Culture Indicated? Not indicated 03/05/17 03/05/17 04:12 04:12 WBC RBC Hgb Hct MCV MCH MCHC RDW Plt Count MPV Neut % (Auto) Lymph % (Auto) [place] % (Auto) Eos % (Auto) Baso % (Auto) Neut # (Auto) Lymph # (Auto) [place] # (Auto) Eos # (Auto) Baso # (Auto) Immature Gran % Nucleated RBC % Immature Gran # Nucleated RBCs # INR PT Patient/Control Mix Circ Anticoag PTT Sodium 139 139 Potassium 4.2 4.4 Chloride 104 104 Carbon Dioxide 27 27 Anion Gap 12.2 12.4 BUN 14 15 Creatinine 1.20 1.20 GFR Calculation 73 73 BUN/Creatinine Ratio 11.00 12.00 Glucose 102 104 Calculated Osmolality 277.5 277.5 Calcium 8.3 L 8.3 L Magnesium 2.2 Total Bilirubin AST ALT Alkaline Phosphatase Total Protein Albumin Globulin Albumin/Globulin Ratio Triglycerides 107 Cholesterol 165 LDL Cholesterol 120.0 VLDL Cholesterol 21.4 HDL Cholesterol 26 L Heart Disease Risk Ratio 6.35 Urine Color Urine Appearance Urine pH Ur Specific [place] Urine Protein Urine Glucose (UA) Urine Ketones Urine Blood Urine Nitrate Urine Bilirubin Urine Urobilinogen Urine Leukocytes Urine RBC Urine WBC Ur Culture Indicated?
[2017-03-05] MEDS: ASPIRIN CHEW 81 MG TABLET PO SCH (09:41)
[2017-03-05] MEDS: CARVEDILOL 6.25 MG TABLET PO SCH ×4 (09:41→23:14)
[2017-03-05] MEDS: APIXABAN 5 MG TABLET PO SCH ×2 (09:41→20:45)
[2017-03-05] MEDS: ATORVASTATIN 40 MG TABLET PO SCH (09:42)
[2017-03-05] MEDS: PANTOPRAZOLE 40 MG TABLET PO SCH (09:42)
[2017-03-05] MEDS: LISINOPRIL 5 MG TABLET PO SCH ×3 (09:42→23:14)
--- NOTE | 2017-03-05 10:01 | Hospitalist Progress Note ---
Assessment and Plan (1) Pulmonary thromboembolism Status: Acute Assessment and plan: 1)Bilateral PE- on Eliquis, hemoptysis resolving. No right heart strain on echo. Sats good on NC. No pain but feels strain with deep breath. 2)CAD- on meds, to follow up with cards once discharged as he hasn't been seen there in a couple of years. 3)infiltrate- infarct v infiltrate- on ceftriaxone. 4)dispo- to floor. Current Visit: Yes (2) Pneumonia Status: Acute Current Visit: No (3) CAD (coronary artery disease) Status: Chronic Current Visit: Yes (4) Hypertension Status: Chronic Current Visit: Yes (5) Dyslipidemia Status: Chronic Current Visit: Yes (6) Tobacco abuse Status: Chronic Current Visit: Yes Hospitalist: Subjective Interval history: Mr Bradshaw had some hemptysis at presentation, but none this morning. He is breathing easier than on admission but still feels some resistance to taking a deep breath. He rested ok and is hungry this morning. 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 Exam - Constitutional Vitals: Period Temp Pulse Resp BP Sys/Guerra Pulse Ox Last 24 Hr 97.2 F-99.7 F 61-94 12-20 103-145/54-88 91-96 General appearance: normal weight, no acute distress - Eye Eye exam: Present: EOMI. Absent: scleral icterus Pupils: Present: YUSUF - Respiratory Respiratory exam: Present: rales (few at bases R>L). Absent: rhonchi, wheezes - Cardiovascular Cardiovascular exam: Present: regular rate and rhythm - GI/Abdominal GI/Abdominal exam: Present: normal bowel sounds, soft. Absent: tenderness - Extremities Exam Extremities exam: Absent: edema Results - Labs CBC & BMP: 03/05/17 04:12 03/05/17 04:12 Lab Results: I have reviewed the past 24 hour labs
[2017-03-05] MEDS: PREGABALIN 50 MG CAPSULE PO SCH ×2 (14:37→20:45)
--- NOTE | 2017-03-05 14:56 | EKG Report ---
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
--- NOTE | 2017-03-05 15:08 | Pulmonology Progress Note ---
Pulmonary - PN: Subj Interval history: The patient is a 76-year-old white male that is a former smoker and has a component of COPD. He has been having shortness of breath for quite some time and came in coughing up sputum and blood in the last few days. He had a CT of his chest that showed some pulmonary emboli. He does have a left lower lobe infiltrate and his x-ray suggests COPD. He has started on anticoagulation and antibiotics and respiratory therapy. He says he is feeling a little better today. His hemoptysis has resolved. He is not having any chest pain now. Exam (Progress Note) - Constitutional Vitals: Period Temp Pulse Resp BP Sys/Guerra Pulse Ox Last 24 Hr 97.2 F-99.7 F 50-94 12-20 97-145/49-88 93-96 General appearance: normal weight, no acute distress (He is comfortable sitting up in bed.) - Head Head exam: Present: normal inspection, normocephalic - Eye Eye exam: Present: EOMI. Absent: scleral icterus Pupils: Present: YUSUF - ENT ENT exam: Present: normal exam - Neck Neck exam: Present: normal inspection. Absent: lymphadenopathy, thyromegaly - Respiratory Respiratory exam: Present: decreased breath sounds, prolonged expiratory phase, rhonchi - Cardiovascular Cardiovascular exam: Present: regular rate and rhythm. Absent: gallop, systolic murmur - GI/Abdominal GI/Abdominal exam: Present: normal bowel sounds, soft. Absent: organomegaly, tenderness - Extremities Exam Extremities exam: Absent: calf tenderness, edema - Neurological Exam Neurological exam: Present: oriented X3, CN II-XII intact - Psychiatric Psychiatric exam: Present: normal affect - Skin Skin exam: Present: warm, dry Results - Labs CBC & BMP: 03/05/17 04:12 03/05/17 04:12 - Diagnostic Findings Procedure: Chest x-ray: image reviewed by me, report reviewed by me (Chest x- ray shows COPD changes and slight left lower lobe infiltrate.) Assessment and Plan (1) COPD (chronic obstructive pulmonary disease) Status: Acute Assessment and plan: Patient has a component of COPD and will continue with bronchodilator therapy. Current Visit: Yes (2) Pneumonia Status: Acute Assessment and plan: The patient has a left lower lobe infiltrate and is getting IV antibiotics. Current Visit: No (3) Hemoptysis Status: Acute Assessment and plan: The patient's hemoptysis has resolved. Current Visit: Yes (4) Pulmonary thromboembolism Status: Acute Assessment and plan: The patient has been started on Eliquis Current Visit: Yes (5) Hypertension Status: Chronic Assessment and plan: His blood pressure stable at present. Current Visit: Yes (6) Ischemic cardiomyopathy Status: Chronic Assessment and plan: The patient has an ejection fraction of about 35%. Current Visit: Yes
[2017-03-05] MEDS: methylPREDNISolone SOD SUC 40 MG/1 ML VIAL IV SCH ×2 (15:35→23:09)
[2017-03-05] MEDS: cefTRIAXone 1,000 MG in SODIUM CHLORIDE 0.9% 100 ML IV SCH (18:16)
--- NOTE | 2017-03-05 18:32 | Urology Consultation ---
Assessment and Plan - Time spent with patient Time spent with patient: Greater than 30 minutes (1) BPH with obstruction/lower urinary tract symptoms Status: Acute Assessment and plan: We will check a PSA and I will order bladder scan. He is on maximal medical therapy. He is followed [facility] Current Visit: Yes History of Present Illness - Data of Consult Patient: new to practice Consult date: 03/05/17 Requesting Physician: Ines Barnes - Consult Narrative Reason for consult: BPH, voiding dysfunction History of present illness: Mr. Bradshaw is a 76 year old male who unfortunately developed blood clot and a pulmonary embolus. He is now on blood thinners as expected. He has a history of BPH. We are asked to see him for BPH and a so-called "thickened" bladder. [facility] already sees [facility] and sees the [facility]ist [facility] and recently saw them and underwent cystoscopy and they placed him on medical therapy. He says is not sure that the medicine they put him on help. I am not sure what medicine they used. He is now on maximum medical therapy. He is on maximum dose of Flomax which is 0.8 mg at bedtime. He was complaining of decreased force of stream hesitancy, urgency and nocturia 3-5 times. There is a family history of carcinoma the prostate. Brother was diagnosed, also with the [facility]. He apparently was treated with brachii therapy. I am going to order a PSA. I am also order a bladder scan to see how well he empties. But he is already established with the [facility] urologist and I recommend he continue to do that. CC: Ines Barnes MD - Home Medications and Allergies Home Medications: Home Medications Medication Instructions Recorded Confirmed Type Albuterol Inhaler [Proventil 2 puff INH Q4H PRN 05/22/16 03/04/17 History Inhaler] Nitroglycerin Sl Tab [Nitrostat] 0.4 mg SL Q5M PRN 05/22/16 03/04/17 History [place]-3 Fatty Acids [Fish Oil 2,000 mg PO BID 05/22/16 03/04/17 History Concentrate] Tamsulosin HCl 0.8 mg PO QAM 05/22/16 03/04/17 History Zinc Sulfate 220 mg PO DAILY 05/22/16 03/04/17 History Finasteride 5 mg PO DAILY 03/04/17 03/04/17 History Magnesium Oxide 840 mg PO DAILY 03/04/17 03/04/17 History Pregabalin [Lyrica] 50 mg PO TID 03/04/17 03/04/17 History Allergies/Adverse Reactions: Allergies Allergy/AdvReac Type Severity Reaction Status Date / Time No Known Allergies Allergy Unverified 05/21/16 23:06 12 point system: reviewed and no additional remarkable complaints except as stated Exam - Constitutional Vitals: Period Temp Pulse Resp BP Sys/Guerra Pulse Ox Last 24 Hr 97.2 F-99.7 F 50-94 12-20 97-135/49-88 93-96 Results - Labs CBC & BMP: 03/05/17 04:12 03/05/17 04:12
[2017-03-05] MEDS: TAMSULOSIN 0.4 MG CAPSULE PO SCH (20:45)
[2017-03-06] MEDS: SODIUM CHLORIDE 0.9% 1,000 ML IV SCH ×2 (03:49→16:04)
[2017-03-06 05:01] LABS: Calcium 8.4 MG/DL (8.5-10.1); Magnesium 2.3 MG/DL (1.8-2.4); Osmolality,Calculated 288.3 MOS/KG (273-304); Potassium 4.4 MMOL/L (3.5-5.1)
--- NOTE | 2017-03-06 08:55 | Cardiology Progress Note ---
<Valarie Solis E - Last Filed: 03/06/17 12:02> Assessment and Plan - Time spent with patient Time spent with patient: Greater than 30 minutes Time spent discussing smoking cessation with patient: more than 10 minutes (1) CAD (coronary artery disease) Status: Chronic Assessment and plan: SEE PLAN OF CARE LISTED BELOW Current Visit: Yes (2) Hypertension Status: Chronic Assessment and plan: SEE PLAN OF CARE LISTED BELOW Current Visit: Yes (3) Dyslipidemia Status: Chronic Assessment and plan: SEE PLAN OF CARE LISTED BELOW Current Visit: Yes (4) Ischemic cardiomyopathy Status: Chronic Assessment and plan: SEE PLAN OF CARE LISTED BELOW Current Visit: Yes (5) Tobacco abuse Status: Chronic Assessment and plan: SEE PLAN OF CARE LISTED BELOW Current Visit: Yes (6) Edema Status: Resolved Assessment and plan: SEE PLAN OF CARE LISTED BELOW Current Visit: Yes (7) Hemoptysis Status: Acute Assessment and plan: SEE PLAN OF CARE LISTED BELOW Current Visit: Yes (8) Pulmonary thromboembolism Status: Acute Assessment and plan: SEE PLAN OF CARE LISTED BELOW Current Visit: Yes Cardiology - PN: Subj Interval history: PATIENT ESCORT: (NEW) DR. TINOCO SUMMARY: Mr. Bradshaw, 76WM, is not attached to a pan greaser. (Previously saw Dr. Cowan, Dr. Simpson and not interested in seeing them again.) Risk factors include: Known CAD (S/P PCI LAD December [address] Cowan), dyslipidemia, tobaccoism. History of mild ischemic cardiomyopathy (EF 35%), chronic pain. Patient admitted March 04, 2017 with complaints of hemoptysis, chest pain and SOB. CT chest revealed extensive bilateral pulmonary emboli with associated small pleural effusions. Abnormal CT. (See report). He was not a candidate for EKOs as the symptoms seemed to be more chronic than acute. Venous US negative for DVT. Echo revealed: EF 35%, PAP 49mmHg, no significant valvular abnormality. MARCH 06, 2017: Patient has been started on Eliquis and he is taking without problems. This morning, he states he is feeling much improved without chest pain, heaviness or tightness. He states he is breathing better today than he has been breathing in several weeks. Only a few episodes of mild hemoptysis. Yesterday, NATALIIA inhibitor initiated. Today, I will decrease Coreg to lower dose as his systolic blood pressure has been averaging 90s. Edema of his lower extremities has completely resolved, fluid free for the first time in several years he reports. Greater than 30 minutes today, I discussed the importance of continued follow-up with a pan greaser and tobacco cessation. Patient sees a physician at the [facility] in [place], [place] and he is considering following up with Dr. Tinoco at discharge. I will further discuss with Dr. Tinoco and await additional recommendations. ASSESSMENT/PLAN: 1. BILATERAL PULMONARY EMBOLI - See above plan of care. Eliquis twice daily. CBC in the morning. 2. KNOWN CAD - S/P LAD 2006. (See [facility] report dictated below) 3. HYPERTENSION - NATALIIA inhibitor recently added. BMP in a.m. 4. DYSLIPIDEMIA - reports statin intolerance. LDL 120. 5. EDEMA - resolved. 6. TOBACCOISM - the merits of tobacco cessation again thoroughly discussed. 7. ISCHEMIC CARDIOMYOPATHY -echo reveals EF 35% (previously 40%). Now on low- dose NATALIIA inhibitor. December 21, 2016 [facility] Impression (Dr. Cowan): 1. Significant disease involving the proximal LAD after diagonal. Acute occlusion, acute ND 2. Significant disease involving a small diagonal 3. Mild to moderate disease involving the right coronary artery 4. Moderate global left ventricular systolic dysfunction with regional wall motion abnormalities of apical and inferoapical dyskinesis, EF 40% 5. Moderate elevation LVEDP CC: Exam (Progress Note) - Constitutional Vitals: Period Temp Pulse Resp BP Sys/Guerra Pulse Ox Last 24 Hr 97.0 F-99.1 F 45-67 17-20 94-130/49-70 94-96 Exam: General: [Appears well with no apparent distress.] [Pleasant and cooperative. ] [Appears comfortable.] HEENT: [PERRL, normocephalic, atraumatic. Poor dentition noted. Mucous membranes moist. No jaundice noted. Conjunctiva moist and clear, sclerae anicteric] Neck: No JVD/HJR, no thyromegaly or lymphadenopathy noted. No carotid bruit appreciated Cardiac: [Regular rate and rhythm.] [No obvious murmur rub or gallop.] Lungs: [Clear to auscultation without accessory muscle use to assist the respiratory pattern.] Not requiring oxygen. Abdomen: Soft, bowel sounds normoactive. Nontender and nondistended. No abdominal bruit or thrill noted. No masses noted. Musculoskeletal: No fluid collection. Decreased range of motion is noted. Extremities: No clubbing, cyanosis noted. [No edema of lower extremities Upper extremity pulses 2+. Lower extremity pulses 1+. Capillary refill less than 3 seconds. Skin: No unusual lesions or rashes. No skin breakdown appreciated. Neuro: Awake, alert and oriented 3. Moves all extremities well without hemiparesis or paralysis. No essential tremor is appreciated. Result/EKG - Labs CBC & BMP: 03/05/17 04:12 03/06/17 04:03 Lab Results: I have reviewed the past 24 hour labs Labs: Laboratory Results - last 24 hr 03/06/17 03/06/17 04:03 04:03 Sodium 141 Potassium 4.4 Chloride 106 Carbon Dioxide 22 Anion Gap 17.4 H BUN 16 Creatinine 1.20 GFR Calculation 72 BUN/Creatinine Ratio 13.00 Glucose 216 H Calculated Osmolality 288.3 Calcium 8.4 L Magnesium 2.3 PSA Diagnostic 3.4 - EKG EKG results: interpreted by me EKG shows: sinus rhythm <Dhiraj Tinoco - Last Filed: 03/06/17 12:44> Assessment and Plan (1) Pulmonary thromboembolism Status: Acute Current Visit: Yes (2) CAD (coronary artery disease) Status: Chronic Current Visit: Yes (3) Hypertension Status: Chronic Current Visit: Yes (4) Dyslipidemia Status: Chronic Current Visit: Yes (5) Ischemic cardiomyopathy Status: Chronic Current Visit: Yes Exam (Progress Note) - Constitutional Vitals: Period Temp Pulse Resp BP Sys/Guerra Pulse Ox Last 24 Hr 97.0 F-99.1 F 45-67 18-20 94-114/50-89 94-96 Result/EKG - Labs CBC & BMP: 03/05/17 04:12 03/06/17 04:03 Labs: Laboratory Results - last 24 hr 03/06/17 03/06/17 04:03 04:03 Sodium 141 Potassium 4.4 Chloride 106 Carbon Dioxide 22 Anion Gap 17.4 H BUN 16 Creatinine 1.20 GFR Calculation 72 BUN/Creatinine Ratio 13.00 Glucose 216 H Calculated Osmolality 288.3 Calcium 8.4 L Magnesium 2.3 PSA Diagnostic 3.4
--- NOTE | 2017-03-06 09:00 | Urology Progress Note ---
Assessment and Plan (1) BPH with obstruction/lower urinary tract symptoms Status: Acute Assessment and plan: We will check a PSA and I will order bladder scan. He is on maximal medical therapy. He is followed by the [facility]rologist at [facility] Current Visit: Yes Urology - PN: Subj Interval history: Patient's residual urine was 175 cc. He is followed at the [facility] and they have recently cystoscoped him and placed him now what sounds like his Proscar. I told him he will have a prescription for the Flomax when he goes home [facility] so I have instructed nursing [facility]. I have related to the patient that I am not his urologist that he is getting his urologic care at the [facility]. he will follow-up with them. Exam - Constitutional Vitals: Period Temp Pulse Resp BP Sys/Guerra Pulse Ox Last 24 Hr 97.0 F-99.1 F 45-67 17-20 94-130/49-70 94-96 Results - Labs CBC & BMP: 03/05/17 04:12 03/06/17 04:03
[2017-03-06] MEDS: APIXABAN 5 MG TABLET PO SCH ×2 (09:45→23:24)
[2017-03-06] MEDS: PREGABALIN 50 MG CAPSULE PO SCH ×3 (09:45→20:33)
[2017-03-06] MEDS: MAGNESIUM OXIDE 400 MG TABLET PO SCH (09:46)
[2017-03-06] MEDS: CARVEDILOL 6.25 MG TABLET PO SCH (09:46)
[2017-03-06] MEDS: ASPIRIN CHEW 81 MG TABLET PO SCH (09:46)
[2017-03-06] MEDS: methylPREDNISolone SOD SUC 40 MG/1 ML VIAL IV SCH ×3 (09:46→23:23)
[2017-03-06] MEDS: PANTOPRAZOLE 40 MG TABLET PO SCH (09:46)
[2017-03-06] MEDS: LISINOPRIL 5 MG TABLET PO SCH ×2 (09:46→20:32)
[2017-03-06] MEDS: ATORVASTATIN 40 MG TABLET PO SCH (09:46)
--- NOTE | 2017-03-06 10:15 | Pulmonology Progress Note ---
Pulmonary - PN: Subj Interval history: The patient is a 76-year-old white male that is a former smoker and has a component of COPD. He has been having shortness of breath for quite some time and came in coughing up sputum and blood in the last few days. He had a CT of his chest that showed some pulmonary emboli. He does have a left lower lobe infiltrate and his x-ray suggests COPD. He has started on anticoagulation and antibiotics and respiratory therapy. During the night he has a slow heart rate but he says his breathing is much better. His cough is improving and his shortness of breath is better. He says he is reasonably comfortable. He is still being monitored by cardiology Exam (Progress Note) - Constitutional Vitals: Period Temp Pulse Resp BP Sys/Guerra Pulse Ox Last 24 Hr 97.0 F-99.1 F 45-67 18-20 94-114/49-70 94-96 Exam: General appearance: normal weight, no acute distress (He is comfortable sitting up in bed. He does not appear to be any respiratory distress at all.) - Head Head exam: Present: normal inspection, normocephalic - Eye Eye exam: Present: EOMI. Absent: scleral icterus Pupils: Present: YUSUF - ENT ENT exam: Present: normal exam - Neck Neck exam: Present: normal inspection. Absent: lymphadenopathy, thyromegaly - Respiratory Respiratory exam: Present: He has fair breath sounds bilaterally and I do not hear any wheezing now. - Cardiovascular Cardiovascular exam: Present: He has a slow regular heart rate now. - GI/Abdominal GI/Abdominal exam: Present: normal bowel sounds, soft. Absent: organomegaly, tenderness - Extremities Exam Extremities exam: Absent: calf tenderness, edema - Neurological Exam Neurological exam: Present: oriented X3, CN II-XII intact - Psychiatric Psychiatric exam: Present: normal affect - Skin Skin exam: Present: warm, dry Results - Labs CBC & BMP: 03/05/17 04:12 03/06/17 04:03 Assessment and Plan (1) COPD (chronic obstructive pulmonary disease) Status: Acute Assessment and plan: Patient has a component of COPD and will continue with bronchodilator therapy. I will give him a short course of steroids and his breathing is better now. Will check a chest x-ray tomorrow. Current Visit: Yes (2) Pneumonia Status: Acute Assessment and plan: The patient has a left lower lobe infiltrate and is getting IV antibiotics. We will repeat his x-ray tomorrow. Current Visit: No (3) Hemoptysis Status: Acute Assessment and plan: The patient has had some sputum production with minimal hemoptysis. Current Visit: Yes (4) Pulmonary thromboembolism Status: Acute Assessment and plan: The patient has been started on Eliquis. He is not having much shortness of breath now. Current Visit: Yes (5) Hypertension Status: Chronic Assessment and plan: His blood pressure stable at present. Current Visit: Yes (6) Ischemic cardiomyopathy Status: Chronic Assessment and plan: The patient has an ejection fraction of about 35%. He does not appear to have any signs of heart failure at present. His heart rate is on the low side. Current Visit: Yes
[2017-03-06 13:14] LABS: Troponin I Only < 0.015 NG/ML (0.00-0.045)
--- NOTE | 2017-03-06 15:18 | EKG Report ---
Stationary ECG Study [facility] Test Date: 03/06/2017 3:19:41 PM Pat Name: GAVIN SAXENA Department: Room: 289 Gender: M Form Layer: : 1940 Requested by: Cindy Mcarthur Order Number: [id number] Reading MD: MARISOL BOWDEN Intervals [place] Rate: 43 P: 56 WY: 151 QRS: 67 QRSD: 106 T: 12 QT: 468 QTc: 414 Interpretive Statements SINUS BRADYCARDIA LOW QRS VOLTAGE IN PRECORDIAL LEADS Electronically Signed On 03-07-17 15:28:52 CDT by MARISOL BOWDEN [email or web address]
--- NOTE | 2017-03-06 15:26 | Hospitalist Progress Note ---
Assessment and Plan (1) Pulmonary thromboembolism Status: Acute Assessment and plan: 1)Bilateral PE- on Eliquis, hemoptysis resolving. No right heart strain on echo. Sats good on NC. breathing more easily. Dr Kinsey started steroids yesterday as he likely has COPD. 2)old CAD- on meds, to follow up with [facility] once discharged as he hasn't been seen there in a couple of years. 3)infiltrate- infarct v infiltrate- on ceftriaxone. 4)dispo- home soon. Current Visit: Yes (2) Pneumonia Status: Acute Current Visit: No (3) CAD (coronary artery disease) Status: Chronic Current Visit: Yes (4) Hypertension Status: Chronic Current Visit: Yes (5) Dyslipidemia Status: Chronic Current Visit: Yes (6) Tobacco abuse Status: Chronic Current Visit: Yes Hospitalist: Subjective Interval history: Mr Bradshaw is doing well today. He is able to take easy deep breaths today. He is not short of breath or wheezing. Exam - Constitutional Vitals: Period Temp Pulse Resp BP Sys/Guerra Pulse Ox Last 24 Hr 97.0 F-99.1 F 45-67 18-20 94-114/50-89 94-96 General appearance: normal weight, no acute distress - Eye Eye exam: Present: EOMI. Absent: scleral icterus - Respiratory Respiratory exam: Present: clear to auscultation bilaterally - Cardiovascular Cardiovascular exam: Present: regular rate and rhythm - GI/Abdominal GI/Abdominal exam: Present: normal bowel sounds, soft. Absent: tenderness - Extremities Exam Extremities exam: Absent: edema Results - Labs CBC & BMP: 03/05/17 04:12 03/06/17 04:03
[2017-03-06] MEDS: cefTRIAXone 1,000 MG in SODIUM CHLORIDE 0.9% 100 ML IV SCH (17:46)
[2017-03-06] MEDS: TAMSULOSIN 0.4 MG CAPSULE PO SCH (20:33)
[2017-03-06] MEDS: CARVEDILOL 3.125 MG TABLET PO SCH (20:35)
[2017-03-07 07:16] LABS: Basophils % 0.1 % (0.0-0.8); Hematocrit 41.9 VOL% (42.0-52.0); Hemoglobin 14.5 GM/DL (14.0-18.0); Immature Granulocytes % 0.8 %; Immature Granulocytes Absolute 0.12 #; Lymphocytes % 6.7 % (21.2-54.2); Mean Corpuscular HGB Conc 34.6 GM/DL (32-36); Mean Corpuscular Hemoglobin 32 PG (27-34); Mean Corpuscular Volume 92.1 FL (87-102); Mean Platelet Volume 9.2 FL (9.6-12.0); Monocytes # 0.6 10*3/uL (0.11-0.8); Neutrophils # 13.8 10*3/uL (1.4-7.4); Neutrophils % 88.4 % (38.7-73.9); Platelet Count 254 T/CUMM (130-400); Red Blood Count 4.55 MC/CUMM (3.8-5.5); Red Cell Distribution Width 12.9 % (9.3-17.3); White Blood Count 15.6 T/CUMM (4-12)
--- NOTE | 2017-03-07 07:19 | XRay Report ---
Portable chest Date: 03/07/2017 Clinical history: Pneumonia Comparison: 03/05/2017 Technique: Portable AP sitting chest Findings: The heart is slightly larger in size. Progressive elevation of the left hemidiaphragm. Progressive adjacent parenchymal findings with minimally larger left pleural effusion. More stable parenchymal findings at the right lung base. Stable mediastinum and osseous structures. Impression: Elevation left hemidiaphragm with increased consolidation/atelectasis/pulmonary infarction at the left lung base with minimally larger small left pleural effusion. More stable atelectasis/infiltration at the right lung base. PROCEDURE INTERPRETED AT [facility] DEPARTMENT OF RADIOLOGY Final Report Signed by: Dr. Isha Wang
[2017-03-07] MEDS: methylPREDNISolone SOD SUC 40 MG/1 ML VIAL IV SCH (07:42)
[2017-03-07 07:48] LABS: Calcium 8.4 MG/DL (8.5-10.1); Magnesium 2.5 MG/DL (1.8-2.4); Osmolality,Calculated 290.1 MOS/KG (273-304); Potassium 4.6 MMOL/L (3.5-5.1)
[2017-03-07] MEDS: PREGABALIN 50 MG CAPSULE PO SCH ×3 (08:31→20:31)
[2017-03-07] MEDS: MAGNESIUM OXIDE 400 MG TABLET PO SCH (08:32)
[2017-03-07] MEDS: ASPIRIN CHEW 81 MG TABLET PO SCH (08:32)
[2017-03-07] MEDS: APIXABAN 5 MG TABLET PO SCH ×2 (08:32→20:32)
[2017-03-07] MEDS: CARVEDILOL 3.125 MG TABLET PO SCH ×2 (08:33→20:32)
[2017-03-07] MEDS: ATORVASTATIN 40 MG TABLET PO SCH (08:33)
[2017-03-07] MEDS: PANTOPRAZOLE 40 MG TABLET PO SCH (08:37)
[2017-03-07] MEDS: LISINOPRIL 5 MG TABLET PO SCH ×2 (08:37→20:32)
--- NOTE | 2017-03-07 09:25 | Pulmonology Progress Note ---
Pulmonary - PN: Subj Interval history: The patient is a 76-year-old white male that is a former smoker and has a component of COPD. He has been having shortness of breath for quite some time and came in coughing up sputum and blood in the last few days. He had a CT of his chest that showed some pulmonary emboli. He does have a left lower lobe infiltrate and his x-ray suggests COPD. He has started on anticoagulation and antibiotics and respiratory therapy. He says he continues to feel better with less shortness of breath. He is not having any chest pain but he is still coughing up a little bit of sputum. His chest x-ray shows cardiomegaly with some slight changes in the bases. He does have a cardiomyopathy. At present he looks reasonably comfortable. Exam (Progress Note) - Constitutional Vitals: Period Temp Pulse Resp BP Sys/Guerra Pulse Ox Last 24 Hr 97.3 F-98.3 F 43-66 18-20 103-132/49-89 94-97 Exam: General appearance: normal weight, no acute distress (He is comfortable sitting up in bed. He does not appear to be any respiratory distress at all.) - Head Head exam: Present: normal inspection, normocephalic - Eye Eye exam: Present: EOMI. Absent: scleral icterus Pupils: Present: YUSUF - ENT ENT exam: Present: normal exam - Neck Neck exam: Present: normal inspection. Absent: lymphadenopathy, thyromegaly - Respiratory Respiratory exam: Present: He has fair breath sounds bilaterally and I do not hear any wheezing now. He has very minimal crackles in the bases. - Cardiovascular Cardiovascular exam: Present: He has a slow regular heart rate now. - GI/Abdominal GI/Abdominal exam: Present: normal bowel sounds, soft. Absent: organomegaly, tenderness - Extremities Exam Extremities exam: Absent: calf tenderness, edema - Neurological Exam Neurological exam: Present: oriented X3, CN II-XII intact - Psychiatric Psychiatric exam: Present: normal affect - Skin Skin exam: Present: warm, dry Results - Labs CBC & BMP: 03/07/17 07:02 03/07/17 07:02 - Diagnostic Findings Procedure: Chest x-ray: image reviewed by me, report reviewed by me (Chest x- ray shows cardiomegaly and is some slight increased markings in the bases, especially the left base.) Assessment and Plan (1) COPD (chronic obstructive pulmonary disease) Status: Acute Assessment and plan: Patient has a component of COPD and will continue with bronchodilator therapy. He is not wheezing now looks like he is breathing better. Will try him on oral medicine. Current Visit: Yes (2) Pneumonia Status: Acute Assessment and plan: The patient has a left lower lobe infiltrate and is getting IV antibiotics. It is still hard to tell what is going on in his left base. He may need a repeat bronchoscope at some point but he can probably go home over the weekend and come back to clinic. Current Visit: No (3) Hemoptysis Status: Acute Assessment and plan: The patient has had some sputum production with minimal hemoptysis. Will follow him as an outpatient and he may need a repeat bronchoscope. Current Visit: Yes (4) Pulmonary thromboembolism Status: Acute Assessment and plan: The patient has been started on Eliquis. He is not having much shortness of breath now. Current Visit: Yes (5) Hypertension Status: Chronic Assessment and plan: His blood pressure stable at present. His chest x-ray looks a little wet and will start Lasix. Current Visit: Yes (6) Ischemic cardiomyopathy Status: Chronic Assessment and plan: The patient has an ejection fraction of about 35%. He does not appear to have any signs of heart failure at present. His heart rate is on the low side. Will add a dose of Lasix each morning and continue other treatment Current Visit: Yes
--- NOTE | 2017-03-07 10:00 | Cardiology Progress Note ---
<Raiza Mantilla - Last Filed: 03/07/17 09:52> Assessment and Plan (1) Pulmonary thromboembolism Status: Acute Assessment and plan: SEE PLAN OF CARE LISTED BELOW. Current Visit: Yes (2) Hemoptysis Status: Acute Assessment and plan: SEE PLAN OF CARE LISTED BELOW. Current Visit: Yes (3) CAD (coronary artery disease) Status: Chronic Assessment and plan: SEE PLAN OF CARE LISTED BELOW. Current Visit: Yes (4) Dyslipidemia Status: Chronic Assessment and plan: SEE PLAN OF CARE LISTED BELOW. Current Visit: Yes (5) Hypertension Status: Chronic Assessment and plan: SEE PLAN OF CARE LISTED BELOW. Current Visit: Yes (6) Ischemic cardiomyopathy Status: Chronic Assessment and plan: SEE PLAN OF CARE LISTED BELOW. Current Visit: Yes (7) Tobacco abuse Status: Chronic Assessment and plan: SEE PLAN OF CARE LISTED BELOW. 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 TINOCO SUMMARY: Mr. 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 (Previously saw Dr. Cowan, Dr. Simpson and not interested in seeing them again.) Risk factors include: Known CAD (S/P PCI LAD December [address] Cowan), dyslipidemia, tobaccoism. History of mild ischemic cardiomyopathy (EF 35%), chronic pain. Patient admitted March 04, 2017 with complaints of hemoptysis, chest pain and SOB. CT chest revealed extensive bilateral pulmonary emboli with associated small pleural effusions. Abnormal CT. (See report). He was not a candidate for EKOs as the symptoms seemed to be more chronic than acute. Venous US negative for DVT. Echo revealed: EF 35%, PAP 49mmHg, no significant valvular abnormality. MARCH 07, 2017: Patient has been started on Eliquis and he is taking without problems. This morning, he reports that he is feeling much better and that he is being discharged home per hospital medicine. He denies chest pain, heaviness or tightness and reports that his breathing continues to improve daily and he is breathing better than he has in months. Still reporting minimal hemoptysis. Vital signs are stable, blood pressure improved after decreasing beta-clive yesterday. Heart rates ranging in the 50s and 60s. Beta clive will be continued as patient does have a cardiomyopathy. Spent several minutes talking with the patient about the importance of smoking cessation. Patient reports that he will follow-up with Dr. Tinoco as an outpatient. I will further discuss with Dr. Tinoco and await additional recommendations. Patient will need to continue Eliquis 10 mg p.o. twice daily for an additional 5 days in order to equal a total of 7 days. He can then convert to 5 mg p.o. twice daily. He will be given a follow-up appointment with Dr. Tinoco in 1 week with CBC and EKG. ASSESSMENT/PLAN: 1. BILATERAL PULMONARY EMBOLI - See above plan of care. Eliquis twice daily. Continue Eliquis 2 mg p.o. twice daily for an additional 5 days. He can then convert to 5 mg twice daily. 2. KNOWN CAD - S/P LAD 2006. (See [facility] report dictated below) 3. HYPERTENSION - Continue current plan of care. Creatinine remained stable after initiation of NATALIIA inhibitor. Recommend that this be continued at discharge as patient has ischemic cardiomyopathy. 4. DYSLIPIDEMIA - reports statin intolerance. LDL 120. 5. EDEMA - resolved. 6. TOBACCOISM - the merits of tobacco cessation again thoroughly discussed. 7. ISCHEMIC CARDIOMYOPATHY -echo reveals EF 35% (previously 40%). Now on low- dose NATALIIA inhibitor. Continue low-dose beta-clive. December 21, 2016 [facility] Impression (Dr. Cowan): 1. Significant disease involving the proximal LAD after diagonal. Acute occlusion, acute MS 2. Significant disease involving a small diagonal 3. Mild to moderate disease involving the right coronary artery 4. Moderate global left ventricular systolic dysfunction with regional wall motion abnormalities of apical and inferoapical dyskinesis, EF 40% 5. Moderate elevation LVEDP Exam (Progress Note) - Constitutional Vitals: Period Temp Pulse Resp BP Sys/Guerra Pulse Ox Last 24 Hr 97.3 F-98.3 F 43-66 18-20 103-132/49-89 94-97 Exam: General: [Appears well with no apparent distress.] [Pleasant and cooperative. ] [Appears comfortable.] HEENT: [PERRL, normocephalic, atraumatic. Poor dentition noted. Mucous membranes moist. No jaundice noted. Conjunctiva moist and clear, sclerae anicteric] Neck: No JVD/HJR, no thyromegaly or lymphadenopathy noted. No carotid bruit appreciated Cardiac: [Regular rate and rhythm.] [No obvious murmur rub or gallop.] Lungs: [Clear to auscultation without accessory muscle use to assist the respiratory pattern.] Not requiring oxygen. Abdomen: Soft, bowel sounds normoactive. Nontender and nondistended. No abdominal bruit or thrill noted. No masses noted. Musculoskeletal: No fluid collection. Decreased range of motion is noted. Extremities: No clubbing, cyanosis noted. [No edema of lower extremities Upper extremity pulses 2+. Lower extremity pulses 1+. Capillary refill less than 3 seconds. Skin: No unusual lesions or rashes. No skin breakdown appreciated. Neuro: Awake, alert and oriented 3. Moves all extremities well without hemiparesis or paralysis. No essential tremor is appreciated. Result/EKG - Labs CBC & BMP: 03/07/17 07:02 03/07/17 07:02 Lab Results: I have reviewed the past 24 hour labs Labs: Laboratory Results - last 24 hr 03/06/17 03/07/17 03/07/17 12:16 07:02 07:02 WBC 15.6 H D RBC 4.55 Hgb 14.5 Hct 41.9 L MCV 92.1 MCH 32 MCHC 34.6 RDW 12.9 Plt Count 254 D MPV 9.2 L Neut % (Auto) 88.4 H Lymph % (Auto) 6.7 L [place] % (Auto) 4.0 Eos % (Auto) 0.0 Baso % (Auto) 0.1 Neut # (Auto) 13.8 H Lymph # (Auto) 1.0 L [place] # (Auto) 0.6 Eos # (Auto) 0.0 Baso # (Auto) 0.0 Immature Gran % 0.8 Nucleated RBC % 0.0 Immature Gran # 0.12 Nucleated RBCs # 0.00 Sodium 142 Potassium 4.6 Chloride 109 H Carbon Dioxide 25 Anion Gap 12.6 BUN 21 H Creatinine 1.20 GFR Calculation 73 BUN/Creatinine Ratio 17.00 Glucose 180 H Calculated Osmolality 290.1 Calcium 8.4 L Magnesium 2.5 H Total Creatine Kinase 98 CK-MB (CK-2) 1.2 Troponin I < 0.015 Specialty Discharge - Follow Up or Referrals Follow up with: Oliver Kinsey MD [Physician] - 1 Month Dhiraj Tinoco MD [Physician] - 1 Week (WITH CBC AND EKG. ) <Dhiraj Tinoco - Last Filed: 03/07/17 10:51> Assessment and Plan (1) Pulmonary thromboembolism Status: Acute Current Visit: Yes (2) CAD (coronary artery disease) Status: Chronic Current Visit: Yes (3) Hypertension Status: Chronic Current Visit: Yes (4) Dyslipidemia Status: Chronic Current Visit: Yes (5) Ischemic cardiomyopathy Status: Chronic Current Visit: Yes Exam (Progress Note) - Constitutional Vitals: Period Temp Pulse Resp BP Sys/Guerra Pulse Ox Last 24 Hr 97.3 F-98.3 F 43-66 18-20 103-132/49-89 94-97 Result/EKG - Labs CBC & BMP: 03/07/17 07:02 03/07/17 07:02 Labs: Laboratory Results - last 24 hr 03/06/17 03/07/17 03/07/17 12:16 07:02 07:02 WBC 15.6 H D RBC 4.55 Hgb 14.5 Hct 41.9 L MCV 92.1 MCH 32 MCHC 34.6 RDW 12.9 Plt Count 254 D MPV 9.2 L Neut % (Auto) 88.4 H Lymph % (Auto) 6.7 L [place] % (Auto) 4.0 Eos % (Auto) 0.0 Baso % (Auto) 0.1 Neut # (Auto) 13.8 H Lymph # (Auto) 1.0 L [place] # (Auto) 0.6 Eos # (Auto) 0.0 Baso # (Auto) 0.0 Immature Gran % 0.8 Nucleated RBC % 0.0 Immature Gran # 0.12 Nucleated RBCs # 0.00 Sodium 142 Potassium 4.6 Chloride 109 H Carbon Dioxide 25 Anion Gap 12.6 BUN 21 H Creatinine 1.20 GFR Calculation 73 BUN/Creatinine Ratio 17.00 Glucose 180 H Calculated Osmolality 290.1 Calcium 8.4 L Magnesium 2.5 H Total Creatine Kinase 98 CK-MB (CK-2) 1.2 Troponin I < 0.015
[2017-03-07] MEDS: FUROSEMIDE 40 MG TABLET PO SCH (10:54)
[2017-03-07] MEDS: predniSONE 20 MG TABLET PO SCH (10:54)
--- NOTE | 2017-03-07 11:01 | Discharge Summary ---
Diagnosis - Discharge Diagnosis (1) Pulmonary thromboembolism Status: Acute (2) Pneumonia Status: Acute (3) CAD (coronary artery disease) Status: Chronic (4) Hypertension Status: Chronic (5) Dyslipidemia Status: Chronic (6) Tobacco abuse Status: Chronic Specialty Discharge - Follow Up or Referrals Follow up with: Dhiraj Garcia MD [Physician] - 1 Week (WITH CBC AND EKG. ) Oliver Kinsey MD [Physician] - 1 Month Discharge Plan - Discharge Data Disposition: Home Health Service Condition at Discharge: Stable Discharge Diet: heart healthy Activity: increase activity as tolerated - Discharge Medications New Aspirin Chew Tab 81 mg PO DAILY tablet Atorvastatin [Lipitor] 40 mg PO DAILY #30 tablet Carvedilol [Coreg] 3.125 mg PO BID #60 tablet Docusate Sodium Cap [Colace Cap] 100 mg PO BID PRN capsule PRN Reason: Constipation guaiFENesin/DM ER 600-30 [Mucinex Dm 600-30 MG] 1 tablet PO BID PRN tablet PRN Reason: Congestion Levofloxacin Tab [Levaquin Tab] 750 mg PO DAILY #7 tablet Ondansetron Inj [Zofran Inj] 4 mg IV Q4H PRN vial PRN Reason: Nausea Pantoprazole Tab [Protonix Tab] 40 mg PO DAILY tablet predniSONE TAB [PredniSONE] 20 mg PO DAILY #10 tablet Apixaban [Eliquis] 5 mg PO BID #60 tablet Furosemide Tab [Lasix Tab] 40 mg PO DAILY #30 tablet Lisinopril [Prinivil] 5 mg PO BID #60 tablet Continue Zinc Sulfate 220 mg PO DAILY Tamsulosin HCl 0.8 mg PO QAM Nitroglycerin Sl Tab [Nitrostat] 0.4 mg SL Q5M PRN PRN Reason: Chest Pain [place]-3 Fatty Acids [Fish Oil Concentrate] 2,000 mg PO BID Magnesium Oxide 840 mg PO DAILY Finasteride 5 mg PO DAILY Pregabalin [Lyrica] 50 mg PO TID Albuterol Inhaler [Proventil Inhaler] 2 puff INH Q4H PRN #1 inhaler PRN Reason: Shortness Of Breath/Wheezing - Follow Up or Referral Follow Up: Oliver Kinsey MD [Physician] - 1 Month Dhiraj Garcia MD [Physician] - 1 Week (WITH CBC AND EKG. ) - Forms/Instructions Exam - Constitutional Vitals: Period Temp Pulse Resp BP Sys/Guerra Pulse Ox Last 24 Hr 97.3 F-98.3 F 43-66 18-20 103-132/49-89 94-97 Discharge Results Procedures and tests throughout hospitalization: Pending Orders 03/08/17 04:00 BMP w/ Mg [Basic Metabolic Panel w/Mg] IN AM CBC [Comp Blood Count Auto Diff] IN AM 03/09/17 04:00 BMP w/ Mg [Basic Metabolic Panel w/Mg] IN AM CBC [Comp Blood Count Auto Diff] IN AM Labs on day of discharge: Labs from last 24 hours 03/07/17 03/07/17 03/06/17 07:02 07:02 12:16 WBC 15.6 H D RBC 4.55 Hgb 14.5 Hct 41.9 L MCV 92.1 MCH 32 MCHC 34.6 RDW 12.9 Plt Count 254 D MPV 9.2 L Neut % (Auto) 88.4 H Lymph % (Auto) 6.7 L [place] % (Auto) 4.0 Eos % (Auto) 0.0 Baso % (Auto) 0.1 Neut # (Auto) 13.8 H Lymph # (Auto) 1.0 L [place] # (Auto) 0.6 Eos # (Auto) 0.0 Baso # (Auto) 0.0 Immature Gran % 0.8 Nucleated RBC % 0.0 Immature Gran # 0.12 Nucleated RBCs # 0.00 Sodium 142 Potassium 4.6 Chloride 109 H Carbon Dioxide 25 Anion Gap 12.6 BUN 21 H Creatinine 1.20 GFR Calculation 73 BUN/Creatinine Ratio 17.00 Glucose 180 H Calculated Osmolality 290.1 Calcium 8.4 L Magnesium 2.5 H Total Creatine Kinase 98 CK-MB (CK-2) 1.2 Troponin I < 0.015 DS: Provider Date of admission: 03/04/17 15:04 Primary care physician: . No PCP Attending physician on admission: Annabella Her MD Consults: 03/04/17 15:38 Consult to Physician [CONS] Routine Comment: bilateral PE Consulting Provider: Cardiology - [facility] When should Consulting Provider be notified: Now 03/04/17 15:46 Consult to Physician [CONS] Routine Comment: bilateral PEs, hemoptysis Consulting Provider: Kenney Don When should Consulting Provider be notified: Now Person Notified: DR. DON Date Notified: 03/04/17 Time Notified: 17:00 Consult Notification Comment: DR. DON IN CCU 03/05/17 15:43 Consult to Physician [CONS] Routine Comment: thickened bladder wall, enlarged prostate Consulting Provider: Tommy Bryant Consult to Specialist Group: Urology When should Consulting Provider be notified: Now Person Notified: Urology Clinic Date Notified: 03/05/17 Time Notified: 15:53 Consult Notification Comment: will give to Dr. Bryant Discharging clinician: Ines Barnes MD
--- NOTE | 2017-03-07 13:32 | Hospitalist Progress Note ---
Assessment and Plan (1) Pulmonary thromboembolism Status: Acute Assessment and plan: 1)Bilateral PE- on Eliquis,no hemoptysis for a day or so. No right heart strain on echo. Sats good on NC. breathing more easily. On steroids for COPD, will see Dr Kinsey in clinic. 2)old CAD- on meds, to follow up with cards once discharged as he hasn't been seen there in a couple of years. Coreg stopped due to bradycardia. 3)infiltrate- infarct v infiltrate- on ceftriaxone. 4)dispo- home soon. Current Visit: Yes (2) Pneumonia Status: Acute Current Visit: No (3) CAD (coronary artery disease) Status: Chronic Current Visit: Yes (4) Hypertension Status: Chronic Current Visit: Yes (5) Dyslipidemia Status: Chronic Current Visit: Yes (6) Tobacco abuse Status: Chronic Current Visit: Yes Hospitalist: Subjective Interval history: Mr Bradshaw is doing well. He is breathing easily and originally I was going to send him home today. However he reported feeling dizzy and itis noted his heart rate is in the 40s. His coreg has been stopped though he got a dose this morning and we will watch him today. He also wants to qualify for home O2 and we will check that as well as home health- Deepika is having trouble contacting [facility] to find out what his benefits are. Exam - Constitutional Vitals: Period Temp Pulse Resp BP Sys/Guerra Pulse Ox Last 24 Hr 97.3 F-98.3 F 43-66 18-20 103-132/49-73 95-97 General appearance: normal weight, no acute distress - Eye Eye exam: Present: EOMI. Absent: scleral icterus - Respiratory Respiratory exam: Present: clear to auscultation bilaterally - Cardiovascular Cardiovascular exam: Present: bradycardia, regular rate and rhythm - GI/Abdominal GI/Abdominal exam: Present: normal bowel sounds, soft. Absent: tenderness - Extremities Exam Extremities exam: Absent: edema Results - Labs CBC & BMP: 03/07/17 07:02 03/07/17 07:02 Lab Results: I have reviewed the past 24 hour labs Specialty Discharge - Follow Up or Referrals Follow up with: Oliver Kinsey MD [Physician] - 04/08/17 10:00 am Dhiraj Garcia MD [Physician] - 03/14/17 10:20 am (WITH CBC AND EKG. )
[2017-03-07] MEDS: SODIUM CHLORIDE 0.9% 1,000 ML IV SCH ×2 (17:32→19:00)
[2017-03-07] MEDS: cefTRIAXone 1,000 MG in SODIUM CHLORIDE 0.9% 100 ML IV SCH (18:38)
[2017-03-07] MEDS: TAMSULOSIN 0.4 MG CAPSULE PO SCH (20:31)
[2017-03-08 05:02] LABS: Basophils % 0.1 % (0.0-0.8); Hematocrit 39.6 VOL% (42.0-52.0); Hemoglobin 13.4 GM/DL (14.0-18.0); Immature Granulocytes % 0.5 %; Immature Granulocytes Absolute 0.07 #; Lymphocytes % 7.1 % (21.2-54.2); Mean Corpuscular HGB Conc 33.8 GM/DL (32-36); Mean Corpuscular Hemoglobin 31 PG (27-34); Mean Corpuscular Volume 91.2 FL (87-102); Mean Platelet Volume 9.3 FL (9.6-12.0); Monocytes # 1.2 10*3/uL (0.11-0.8); Monocytes % 8.2 % (1.7-12.7); Neutrophils % 84.1 % (38.7-73.9); Platelet Count 262 T/CUMM (130-400); Red Blood Count 4.34 MC/CUMM (3.8-5.5); Red Cell Distribution Width 12.9 % (9.3-17.3); White Blood Count 14.3 T/CUMM (4-12)
[2017-03-08 05:37] LABS: Calcium 8.1 MG/DL (8.5-10.1); Magnesium 2.4 MG/DL (1.8-2.4); Osmolality,Calculated 288.3 MOS/KG (273-304); Potassium 4.5 MMOL/L (3.5-5.1)
[2017-03-08] MEDS: PANTOPRAZOLE 40 MG TABLET PO SCH (10:12)
[2017-03-08] MEDS: ASPIRIN CHEW 81 MG TABLET PO SCH (10:12)
[2017-03-08] MEDS: LISINOPRIL 5 MG TABLET PO SCH (10:13)
[2017-03-08] MEDS: ATORVASTATIN 40 MG TABLET PO SCH (10:13)
[2017-03-08] MEDS: FUROSEMIDE 40 MG TABLET PO SCH (10:14)
[2017-03-08] MEDS: predniSONE 20 MG TABLET PO SCH (10:14)
[2017-03-08] MEDS: MAGNESIUM OXIDE 400 MG TABLET PO SCH (10:14)
[2017-03-08] MEDS: APIXABAN 5 MG TABLET PO SCH ×2 (10:15→20:00)
[2017-03-08] MEDS: CARVEDILOL 3.125 MG TABLET PO SCH (10:16)
[2017-03-08] MEDS: PREGABALIN 50 MG CAPSULE PO SCH ×3 (10:16→20:00)
--- NOTE | 2017-03-08 13:06 | Cardiology Progress Note ---
Assessment and Plan (1) Pulmonary thromboembolism Status: Acute Assessment and plan: March 04, 2017: 1. 76-year-old WM previous smoker with hypertension, dyslipidemia, known mild ischemic cardiomyopathy, status post NH and PCI in 2006 of LAD, now with progressive dyspnea on exertion with hemoptysis today bilateral pulmonary emboli noted on CT scan with at most mild right ventricular enlargement (not candidate for EKOS) 2. Echocardiogram showed EF 35-40% with some increased apical hypokinesis consistent with previous event in the LAD territory 3. We will continue Coreg 4. I had high intensity statin therapy 5. Start baby aspirin if he has no significant bleeding problems on high-dose Eliquis (10 mg twice daily started on admission) March 05, 2017: 1. Mr. Bradshaw is doing much better clinically, though he had a little hemoptysis during the night 2. Echocardiogram shows EF 35-40% (previously 40%) with history of NH and LAD stenting approximately 2006 3. Add low-dose NATALIIA inhibitor 4. Would start baby aspirin given his hematocrit is stable at 44% 5. He is not seeing cardiology in at least 5 years; will schedule for follow- up in 2-3 weeks time March 08 update: 1. Mr. Maldonado continues to do well with regard to his shortness of breath and still has mild hemoptysis after his bilateral PE 2. I started Coreg low-dose of 3.125 mg due to his mild to moderate ischemic cardiomyopathy probably related to his old NH in 2006 when he had LAD stenting. However given his significant bradycardia and modest orthostasis, will continue discontinue that and observe on telemetry overnight. 3. He can be discharged tomorrow if he does well clinically and his heart rate is not an issue. Current Visit: Yes (2) CAD (coronary artery disease) Status: Chronic Current Visit: Yes (3) Hypertension Status: Chronic Current Visit: Yes (4) Dyslipidemia Status: Chronic Current Visit: Yes (5) Ischemic cardiomyopathy Status: Chronic Current Visit: Yes Cardiology - PN: Subj Interval history: Mr. Bradshaw reports some lightheadedness when he walks around. His heart rate got down to 30 on 1 strip during the night while he was sleeping. Has been in the 40s this morning. I will hold his Coreg. He is not having chest pain or short breath continues to improve. He does still have some mild hemoptysis. Exam (Progress Note) - Constitutional Vitals: Period Temp Pulse Resp BP Sys/Guerra Pulse Ox Last 24 Hr 97.3 F-98.4 F 37-54 12-20 114-134/59-78 94-97 General appearance: normal weight, no acute distress - Head Head exam: Present: normal inspection, normocephalic, atraumatic - Neck Neck exam: Present: normal inspection - Respiratory Respiratory exam: Present: clear to auscultation bilaterally. Absent: stridor, wheezes - Cardiovascular Cardiovascular exam: Present: bradycardia. Absent: diastolic murmur, JVD, rubs - GI/Abdominal GI/Abdominal exam: Present: soft. Absent: tenderness, rebound - Extremities Exam Extremities exam: Absent: edema Result/EKG - Labs CBC & BMP: 03/08/17 04:49 03/08/17 04:49 Labs: Laboratory Results - last 24 hr 03/08/17 03/08/17 03/08/17 04:49 04:49 08:15 WBC 14.3 H RBC 4.34 Hgb 13.4 L Hct 39.6 L MCV 91.2 MCH 31 MCHC 33.8 RDW 12.9 Plt Count 262 MPV 9.3 L Neut % (Auto) 84.1 H Lymph % (Auto) 7.1 L [place] % (Auto) 8.2 Eos % (Auto) 0.0 Baso % (Auto) 0.1 Neut # (Auto) 12.0 H Lymph # (Auto) 1.0 L [place] # (Auto) 1.2 H Eos # (Auto) 0.0 Baso # (Auto) 0.0 Immature Gran % 0.5 Nucleated RBC % 0.0 Immature Gran # 0.07 Nucleated RBCs # 0.00 Sodium 141 Potassium 4.5 Chloride 110 H Carbon Dioxide 23 Anion Gap 12.5 BUN 26 H Creatinine 1.10 GFR Calculation 81 BUN/Creatinine Ratio 23.00 H Glucose 160 H Hemoglobin A1c 5.8 Calculated Osmolality 288.3 Calcium 8.1 L Magnesium 2.4 Specialty Discharge - Follow Up or Referrals Follow up with: Oliver Kinsey MD [Physician] - 04/08/17 10:00 am Dhiraj Garcia MD [Physician] - 03/14/17 10:20 am (WITH CBC AND EKG. )
--- NOTE | 2017-03-08 14:41 | Hospitalist Progress Note ---
Assessment and Plan (1) Pulmonary thromboembolism Status: Acute Assessment and plan: 1)Bilateral PE- on Eliquis,no hemoptysisin last day. No right heart strain on echo. Sats good on NC. breathing more easily. On steroids for COPD, will see Dr Kinsey in clinic. 2)old CAD- on meds, to follow up with cards once discharged as he hasn't been seen there in a couple of years. Coreg stopped due to bradycardia. 3)infiltrate- infarct v infiltrate- on ceftriaxone. 4)bradycardia- no coreg since yesterday morning but still has sinus bradycardia. When he was walking around the unit his heart rate was 69. Conitnue to observe off coreg. No dizziness while up and walking. Discharge when question of symptomatic bradycardia resolved. Current Visit: Yes (2) Pneumonia Status: Acute Current Visit: No (3) CAD (coronary artery disease) Status: Chronic Current Visit: Yes (4) Hypertension Status: Chronic Current Visit: Yes (5) Dyslipidemia Status: Chronic Current Visit: Yes (6) Tobacco abuse Status: Chronic Current Visit: Yes Hospitalist: Subjective Interval history: Mr Bradshaw reports being dizzy with heart rates in the 40s and his rate was as low as 32 overnight while he was asleep. Exam - Constitutional Vitals: Period Temp Pulse Resp BP Sys/Guerra Pulse Ox Last 24 Hr 97.3 F-98.4 F 37-54 12-20 114-134/59-78 94-97 General appearance: normal weight, no acute distress - Head Head exam: Present: normocephalic, atraumatic - Eye Eye exam: Present: EOMI. Absent: scleral icterus - Respiratory Respiratory exam: Present: clear to auscultation bilaterally - Cardiovascular Cardiovascular exam: Present: regular rate and rhythm - GI/Abdominal GI/Abdominal exam: Present: normal bowel sounds, soft. Absent: tenderness - Extremities Exam Extremities exam: Absent: edema Results - Labs CBC & BMP: 03/08/17 04:49 03/08/17 04:49 Lab Results: I have reviewed the past 24 hour labs Specialty Discharge - Follow Up or Referrals Follow up with: Oliver Kinsey MD [Physician] - 04/08/17 10:00 am Dhiraj Garcia MD [Physician] - 03/14/17 10:20 am (WITH CBC AND EKG. )
[2017-03-08] MEDS: SODIUM CHLORIDE 0.9% 1,000 ML IV SCH (17:09)
[2017-03-08] MEDS: cefTRIAXone 1,000 MG in SODIUM CHLORIDE 0.9% 100 ML IV SCH (18:29)
[2017-03-08] MEDS ORDERED: ALBUTEROL/IPRATROPIUM 3 ML NEB RESP TX PRN (18:34)
[2017-03-08] MEDS ORDERED: ALBUTEROL/IPRATROPIUM 3 ML NEB RESP TX ONE (18:35)
--- NOTE | 2017-03-08 18:38 | Pulmonology Progress Note ---
Pulmonary - PN: Subj Interval history: 76-year-old male with likely COPD admitted for hemoptysis and found to have pulmonary emboli. He has been started on anticoagulation and is doing well with resolution of hemoptysis. His main issue at this time is intermittent bradycardia. Today patient also complains of feeling chest congestion and difficulty with expectorating his sputum. Exam (Progress Note) - Constitutional Vitals: Period Temp Pulse Resp BP Sys/Guerra Pulse Ox Last 24 Hr 97.3 F-98.4 F 37-54 12-20 114-139/59-78 94-97 General appearance: over weight - Head Head exam: Present: normal inspection - Eye Eye exam: Present: EOMI Pupils: Present: YUSUF - Neck Neck exam: Present: normal inspection - Respiratory Respiratory exam: Present: clear to auscultation bilaterally, prolonged expiratory phase (Slight). Absent: accessory muscle use, rales, wheezes - Cardiovascular Cardiovascular exam: Present: bradycardia - GI/Abdominal GI/Abdominal exam: Present: normal bowel sounds, soft - Extremities Exam Extremities exam: Present: normal inspection - Neurological Exam Neurological exam: Present: alert, oriented X3 - Skin Skin exam: Present: normal color, warm, dry Results - Labs CBC & BMP: 03/08/17 04:49 03/08/17 04:49 Assessment and Plan (1) COPD (chronic obstructive pulmonary disease) Status: Acute Assessment and plan: Patient complaining of difficulty expectorating sputum and chest congestion. Will start bronchodilators and continue other therapies including steroids. Patient will need to be discharged on bronchodilators and a course of steroids. Current Visit: Yes (2) Hemoptysis Status: Acute Assessment and plan: Resolving Current Visit: Yes (3) Pulmonary thromboembolism Status: Acute Assessment and plan: He has been started on Eliquis and shortness of breath has improved. Current Visit: Yes (4) Ischemic cardiomyopathy Status: Chronic Assessment and plan: Patient currently appears euvolemic. Current Visit: Yes (5) Pneumonia Status: Acute Assessment and plan: Patient can be transitioned to oral antibiotics to complete a course of therapy for pneumonia. He will then need repeat imaging in 4-6 weeks and likely pulmonary follow-up. Current Visit: No Qualifiers: Pneumonia type: due to unspecified organism Laterality: left Lung location: lower lobe of lung Qualified Code(s): J18.1 - Lobar pneumonia, unspecified organism Specialty Discharge - Follow Up or Referrals Follow up with: Oliver Kinsey MD [Physician] - 04/08/17 10:00 am Dhiraj Garcia MD [Physician] - 03/14/17 10:20 am (WITH CBC AND EKG. )
[2017-03-08] MEDS: TAMSULOSIN 0.4 MG CAPSULE PO SCH (19:59)
[2017-03-09] MEDS: LISINOPRIL 5 MG TABLET PO SCH ×2 (01:26→09:44)
[2017-03-09 05:03] LABS: Basophils % 0.1 % (0.0-0.8); Eosinophils # 0.1 10*3/uL (0.0-0.87); Eosinophils % 0.8 % (0.00-10.9); Hemoglobin 14.2 GM/DL (14.0-18.0); Immature Granulocytes % 0.6 %; Immature Granulocytes Absolute 0.07 #; Lymphocytes % 17.6 % (21.2-54.2); Mean Corpuscular HGB Conc 33.8 GM/DL (32-36); Mean Corpuscular Hemoglobin 31 PG (27-34); Mean Corpuscular Volume 91.5 FL (87-102); Mean Platelet Volume 10.1 FL (9.6-12.0); Monocytes # 1.1 10*3/uL (0.11-0.8); Monocytes % 9.6 % (1.7-12.7); Neutrophils # 8.3 10*3/uL (1.4-7.4); Neutrophils % 71.3 % (38.7-73.9); Platelet Count 278 T/CUMM (130-400); Red Blood Count 4.59 MC/CUMM (3.8-5.5); Red Cell Distribution Width 12.9 % (9.3-17.3); White Blood Count 11.6 T/CUMM (4-12)
[2017-03-09 05:39] LABS: Calcium 8.8 MG/DL (8.5-10.1); Magnesium 2.4 MG/DL (1.8-2.4); Potassium 4.3 MMOL/L (3.5-5.1)
[2017-03-09 08:22] VITALS: BP 132/69
--- NOTE | 2017-03-09 08:43 | Cardiology Progress Note ---
Assessment and Plan (1) Pulmonary thromboembolism Status: Acute Assessment and plan: March 04, 2017: 1. 76-year-old WM previous smoker with hypertension, dyslipidemia, known mild ischemic cardiomyopathy, status post MN and PCI in 2006 of LAD, now with progressive dyspnea on exertion with hemoptysis today bilateral pulmonary emboli noted on CT scan with at most mild right ventricular enlargement (not candidate for EKOS) 2. Echocardiogram showed EF 35-40% with some increased apical hypokinesis consistent with previous event in the LAD territory 3. We will continue Coreg 4. I had high intensity statin therapy 5. Start baby aspirin if he has no significant bleeding problems on high-dose Eliquis (10 mg twice daily started on admission) March 05, 2017: 1. Mr. Bradshaw is doing much better clinically, though he had a little hemoptysis during the night 2. Echocardiogram shows EF 35-40% (previously 40%) with history of MN and LAD stenting approximately 2006 3. Add low-dose NATALIIA inhibitor 4. Would start baby aspirin given his hematocrit is stable at 44% 5. He is not seeing cardiology in at least 5 years; will schedule for follow- up in 2-3 weeks time March 08 update: 1. Mr. Maldonado continues to do well with regard to his shortness of breath and still has mild hemoptysis after his bilateral PE 2. I started Coreg low-dose of 3.125 mg due to his mild to moderate ischemic cardiomyopathy probably related to his old MN in 2006 when he had LAD stenting. However given his significant bradycardia and modest orthostasis, will continue discontinue that and observe on telemetry overnight. 3. He can be discharged tomorrow if he does well clinically and his heart rate is not an issue. March 09, 2017: 1. Mr. Bradshaw is doing well clinically with modest fatigue, and complete resolution of his lower extreme swelling in dramatic improvement in his dyspnea on exertion. 2. Despite being off Coreg for over 24 hours his heart rate still dropped into the 30s during sleep, and is in the upper 40s to low 50s at rest. However I walk with him around the [place] his heart rate went to the 60s without any severe symptoms. 3. Mr. Bradshaw may have SSS requiring pacemaker placement but has no high-grade AV block or worrisome symptoms at this point. I discussed the options of stopping his anticoagulation for [address] a pacemaker and then restarting it versus continuing it and follow him closely outpatient to determine if he needs a pacemaker in the future (some possibly this could resolve after his PE completely clears). I believe it would be safer to discharge him with close follow-up, rather interrupt treatment for his pulmonary emboli. He is agreeable to this. He has chronic somewhat unsteady gait without falls. He uses a walker intermittently but can walk short distances without trouble. He says he has neuropathy for which he takes Lyrica which helped him some. 4. Recommend discharge and follow-up with me in 1 week's time with EKG. We discussed the importance of avoiding falls as he is on anticoagulation. Of course his Eliquis can be reduced to 5 g twice daily after 1 week of therapy is completed. Current Visit: Yes (2) CAD (coronary artery disease) Status: Chronic Current Visit: Yes (3) Hypertension Status: Chronic Current Visit: Yes (4) Dyslipidemia Status: Chronic Current Visit: Yes (5) Ischemic cardiomyopathy Status: Chronic Current Visit: Yes Cardiology - PN: Subj Interval history: Mr. Bradshaw is feeling reasonably well today with no shortness of breath at rest. He again had sinus bradycardia during the night down to the 30s, is in the upper 40s-50s at rest, and goes into the 60s when he walks around the [place]. He feels a little weak but no presyncope or syncope. He reports he has had this for months and is never had presyncope or syncope. He has had a high-grade AV block. He is not having chest discomfort. He had a little hemoptysis yesterday per Exam (Progress Note) - Constitutional Vitals: Period Temp Pulse Resp BP Sys/Guerra Pulse Ox Last 24 Hr 97.2 F-98.4 F 37-82 12-20 106-140/65-78 92-98 General appearance: normal weight, no acute distress - Head Head exam: Present: normal inspection, normocephalic, atraumatic - Neck Neck exam: Present: normal inspection - Respiratory Respiratory exam: Absent: rhonchi, stridor, wheezes - Cardiovascular Cardiovascular exam: Present: bradycardia. Absent: diastolic murmur, rubs - GI/Abdominal GI/Abdominal exam: Present: soft. Absent: tenderness - Extremities Exam Extremities exam: Absent: edema Result/EKG - Labs CBC & BMP: 03/09/17 03:50 03/09/17 03:50 Labs: Laboratory Results - last 24 hr 03/08/17 03/09/17 03/09/17 08:15 03:50 03:50 WBC 11.6 RBC 4.59 Hgb 14.2 Hct 42.0 MCV 91.5 MCH 31 MCHC 33.8 RDW 12.9 Plt Count 278 MPV 10.1 Neut % (Auto) 71.3 Lymph % (Auto) 17.6 L [place] % (Auto) 9.6 Eos % (Auto) 0.8 Baso % (Auto) 0.1 Neut # (Auto) 8.3 H Lymph # (Auto) 2.0 [place] # (Auto) 1.1 H Eos # (Auto) 0.1 Baso # (Auto) 0.0 Immature Gran % 0.6 Nucleated RBC % 0.0 Immature Gran # 0.07 Nucleated RBCs # 0.00 Sodium 143 Potassium 4.3 Chloride 105 Carbon Dioxide 31 Anion Gap 11.3 BUN 25 H Creatinine 1.30 GFR Calculation 66 BUN/Creatinine Ratio 19.00 Glucose 144 H Hemoglobin A1c 5.8 Calculated Osmolality 291.0 Calcium 8.8 Magnesium 2.4 Specialty Discharge - Follow Up or Referrals Follow up with: Oliver Kinsey MD [Physician] - 04/08/17 10:00 am Dhiraj Garcia MD [Physician] - 03/14/17 10:20 am (WITH CBC AND EKG. )
--- NOTE | 2017-03-09 09:26 | Discharge Summary ---
<BlueCindy Skelton - Last Filed: 03/09/17 09:26> Hospital Course - Hospital Course Hospital Course: Mr. Bradshaw is a 76-year-old white male with history of chronic tobacco abuse, dysuria, and CAD presenting to the ED on 03/04/2017 with progressive cough and hemoptysis. CT of the chest in the ED confirmed bilateral pulmonary embolism. He was evaluated by cardiology for potential EKOS catheter directed TPA however he was not a candidate. He was admitted to the ICU for close observation and started on Eliquis. Echo performed showed LV systolic function with EF of 35-40 % with increased apical hypokinesis, aortic sclerosis without stenosis and trace mild tricuspid regurgitation. Pulmonary and cardiology did follow the patient through his hospital stay. He was doing well and preparing for discharge when he had some episodes of bradycardia with heart rates dropping into the 20s. He did have some weakness and dizziness associated with this. Patient's Coreg was held and he continued to have heart rates in the 30s and 40s. With walking patient's heart rate increases to the 60s without any severe symptoms. Mr. Bradshaw may have SSS requiring pacemaker placement but he has no high-grade AV block or worrisome symptoms at this point. Cardiology believed it was safer to discharge him with close follow-up then rather than interrupt his treatment for the PE. Patient is agreeable to this. He will need to follow -up with Dr. Garcia in his office in 1 week with an EKG. Dr. Garcia did discuss the importance of avoiding falls as he is on anticoagulation. His Eliquis will be decreased to 5 mg twice daily after 1 week of therapy is initiated which will be 03/11/2017. Pulmonary also followed patient during this stay and he will need to follow-up with Dr. Kinsey in 1-2 weeks with a chest x-ray. Patient did have some left lower lobe infiltrate and some COPD. He did receive antibiotics and respiratory treatments. Dr. Bryant from urology was also consulted for BPH and voiding dysfunction. Patient is on the maximum dose of Flomax and his [employer] was normal. Bladder scan showed 175 residual. He is followed at the [facility] and they had recently cystoscoped him and placed him also on Proscar. Dr. Bryant wrote him a prescription for the Flomax upon discharge and set him up with follow-up with the [facility]. Patient will be DC'd home today with follow-up as already mentioned. Patient's case was discussed with Dr. Barnes the hospitalist, cardiology, pulmonary, urology, patient and nursing staff. Care coordination, chart review, and discharge paperwork took approximately 47 minutes. 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 ) Discharge Plan - Discharge Data Disposition: Home Health Service Condition at Discharge: Stable Discharge Diet: heart healthy Activity: resume usual activities as tolerated Hygiene: may shower Contact your physician if you experience:: fever over 101, Shortness of breath - Discharge Medications New Aspirin Chew Tab 81 mg PO DAILY tablet Atorvastatin [Lipitor] 40 mg PO DAILY #30 tablet Docusate Sodium Cap [Colace Cap] 100 mg PO BID PRN capsule PRN Reason: Constipation guaiFENesin/DM ER 600-30 [Mucinex Dm 600-30 MG] 1 tablet PO BID PRN tablet PRN Reason: Congestion Levofloxacin Tab [Levaquin Tab] 750 mg PO DAILY #7 tablet Ondansetron Inj [Zofran Inj] 4 mg IV Q4H PRN vial PRN Reason: Nausea Pantoprazole Tab [Protonix Tab] 40 mg PO DAILY tablet predniSONE TAB [PredniSONE] 20 mg PO DAILY #10 tablet Apixaban [Eliquis] 5 mg PO BID #60 tablet Furosemide Tab [Lasix Tab] 40 mg PO DAILY #30 tablet Lisinopril [Prinivil] 5 mg PO BID #60 tablet Continue Zinc Sulfate 220 mg PO DAILY Tamsulosin HCl 0.8 mg PO QAM Nitroglycerin Sl Tab [Nitrostat] 0.4 mg SL Q5M PRN PRN Reason: Chest Pain [place]-3 Fatty Acids [Fish Oil Concentrate] 2,000 mg PO BID Magnesium Oxide 840 mg PO DAILY Finasteride 5 mg PO DAILY Pregabalin [Lyrica] 50 mg PO TID Albuterol Inhaler [Proventil Inhaler] 2 puff INH Q4H PRN #1 inhaler PRN Reason: Shortness Of Breath/Wheezing - Follow Up or Referral Follow Up: Oliver Kinsey MD [Physician] - 04/08/17 10:00 am Dhiraj Garcia MD [Physician] - 03/14/17 10:20 am (WITH CBC AND EKG. ) - Forms/Instructions Instructions: Chronic Hypertension (DC) Exam - Constitutional Vitals: Period Temp Pulse Resp BP Sys/Guerra Pulse Ox Last 24 Hr 97.2 F-98.4 F 37-82 12-20 106-140/65-78 92-98 Exam: 76-year-old white male, no acute distress, alert and oriented Chest clear CV regular rate and rhythm Abdomen soft and nontender Extremities no edema Discharge Results Labs on day of discharge: Labs from last 24 hours 03/09/17 03/09/17 03/08/17 03:50 03:50 08:15 WBC 11.6 RBC 4.59 Hgb 14.2 Hct 42.0 MCV 91.5 MCH 31 MCHC 33.8 RDW 12.9 Plt Count 278 MPV 10.1 Neut % (Auto) 71.3 Lymph % (Auto) 17.6 L [place] % (Auto) 9.6 Eos % (Auto) 0.8 Baso % (Auto) 0.1 Neut # (Auto) 8.3 H Lymph # (Auto) 2.0 [place] # (Auto) 1.1 H Eos # (Auto) 0.1 Baso # (Auto) 0.0 Immature Gran % 0.6 Nucleated RBC % 0.0 Immature Gran # 0.07 Nucleated RBCs # 0.00 Sodium 143 Potassium 4.3 Chloride 105 Carbon Dioxide 31 Anion Gap 11.3 BUN 25 H Creatinine 1.30 GFR Calculation 66 BUN/Creatinine Ratio 19.00 Glucose 144 H Hemoglobin A1c 5.8 Calculated Osmolality 291.0 Calcium 8.8 Magnesium 2.4 DS: Provider Date of admission: 03/04/17 15:04 Primary care physician: . No PCP Attending physician on admission: Annabella Her MD Consults: 03/04/17 15:38 Consult to Physician [CONS] Routine Comment: bilateral PE Consulting Provider: Cardiology - [facility] When should Consulting Provider be notified: Now 03/04/17 15:46 Consult to Physician [CONS] Routine Comment: bilateral PEs, hemoptysis Consulting Provider: Kenney Don When should Consulting Provider be notified: Now Person Notified: DR. DON Date Notified: 03/04/17 Time Notified: 17:00 Consult Notification Comment: DR. DON IN CCU 03/05/17 15:43 Consult to Physician [CONS] Routine Comment: thickened bladder wall, enlarged prostate Consulting Provider: Tommy Bryant Consult to Specialist Group: Urology When should Consulting Provider be notified: Now Person Notified: Urology Clinic Date Notified: 03/05/17 Time Notified: 15:53 Consult Notification Comment: will give to Dr. Bryant 03/07/17 11:08 Consult to Case Mgmt/Social Srvs [CONS] Routine Reason for Case Mgmt/Social Srvs: Home Health Discharging clinician: CHUY Moraes Expected date of discharge: 03/09/17 <Ines Barnes - Last Filed: 03/09/17 09:59> Diagnosis - Discharge Diagnosis (1) Pulmonary thromboembolism Status: Acute (2) CAD (coronary artery disease) Status: Chronic (3) Hypertension Status: Chronic (4) Dyslipidemia Status: Chronic (5) Tobacco abuse Status: Chronic
--- NOTE | 2017-03-09 09:37 | EKG Report ---
Stationary ECG Study [facility] Test Date: 03/09/2017 9:35:46 AM Pat Name: GAVIN SAXENA Department: Room: 289 Gender: M Sheet Heater: WILNER : 1940 Requested by: Dhiraj Hernandez Order Number: [id number] Reading MD: ZOYA CHAU Intervals Stamps Rate: 46 P: 60 NC: 138 QRS: 52 QRSD: 114 T: 49 QT: 415 QTc: 375 Interpretive Statements SINUS BRADYCARDIA LEFT ATRIAL ABNORMALITY LOW QRS VOLTAGE IN PRECORDIAL LEADS Electronically Signed On 03-10-17 07:16:59 CDT by ZOYA CHAU [email or web address]
[2017-03-09] MEDS: FUROSEMIDE 40 MG TABLET PO SCH (09:41)
[2017-03-09] MEDS: ASPIRIN CHEW 81 MG TABLET PO SCH (09:41)
[2017-03-09] MEDS: PREGABALIN 50 MG CAPSULE PO SCH (09:42)
[2017-03-09] MEDS: MAGNESIUM OXIDE 400 MG TABLET PO SCH (09:42)
[2017-03-09] MEDS: APIXABAN 5 MG TABLET PO SCH (09:42)
[2017-03-09] MEDS: PANTOPRAZOLE 40 MG TABLET PO SCH (09:43)
[2017-03-09] MEDS: predniSONE 20 MG TABLET PO SCH (09:43)
[2017-03-09] MEDS: ATORVASTATIN 40 MG TABLET PO SCH (09:43)
== END 2017-03-09 11:48 | disposition home or self-care (01) | DRG 175 ==
LOC: N.ED 11:47 → N.EDINP 15:04 → SUATTDRO 15:04 → N.CC 16:47 → N.TELEN 03-05 12:10
PROVIDERS: ADMIT Internal Medicine; ATTEND Internal Medicine

== ENCOUNTER 2017-07-25 14:05 | Inpatient (IN) ==
[2017-07-25 15:35] LABS: Basophils # 0.1 10*3/uL (0.0-0.2); Basophils % 0.7 % (0.0-0.8); Eosinophils # 0.2 10*3/uL (0.0-0.87); Eosinophils % 2.1 % (0.00-10.9); Hematocrit 41.2 VOL% (42.0-52.0); Hemoglobin 14.3 GM/DL (14.0-18.0); Immature Granulocytes % 0.4 %; Immature Granulocytes Absolute 0.03 #; Lymphocytes # 1.5 10*3/uL (1.4-4.0); Lymphocytes % 20.3 % (21.2-54.2); Mean Corpuscular HGB Conc 34.7 GM/DL (32-36); Mean Corpuscular Hemoglobin 32 PG (27-34); Mean Corpuscular Volume 92.8 FL (87-102); Mean Platelet Volume 9.6 FL (9.6-12.0); Monocytes # 0.8 10*3/uL (0.11-0.8); Monocytes % 11.3 % (1.7-12.7); Neutrophils # 4.9 10*3/uL (1.4-7.4); Neutrophils % 65.2 % (38.7-73.9); Platelet Count 223 T/CUMM (130-400); Red Blood Count 4.44 MC/CUMM (3.8-5.5); Red Cell Distribution Width 13.2 % (9.3-17.3); White Blood Count 7.5 T/CUMM (4-12)
[2017-07-25 16:03] LABS: Albumin 3.5 G/DL (3.4-5.0); Bilirubin,Total 0.6 MG/DL (0.2-1.0); Calcium 8.7 MG/DL (8.5-10.1); Osmolality,Calculated 278.4 MOS/KG (273-304); Potassium 4.3 MMOL/L (3.5-5.1); Total Protein 6.8 G/DL (6.4-8.3); Troponin I Only < 0.015 NG/ML (0.00-0.045)
[2017-07-25 16:22] LABS: Apearance,Urine CLEAR (Clear); Bilirubin,Urine Negative (Negative); Blood, Urine Small mg/dL (Negative); Glucose,Urine (UA) Negative (Negative); Hyaline Casts,Urine 1 /LPF (0-3); Ketones,Urine Negative (Negative); Mucus,Urine Occasional /LPF (Occasional); Nitrite,Urine Negative (Negative); Protein,Urine Negative; RBC,Urine 2 /HPF (0-4); Urine Color Yellow (Yellow); Urine Specific Gravity 1.011 (1.001-1.035); Urine Urobilinogen < 2.0 EU/DL (0.2-1.0); WBC,Urine 1 /HPF (0-6)
[2017-07-25] MEDS ORDERED: SODIUM CHLORIDE 0.9% 500 ML IV STA (17:51)
[2017-07-25] MEDS ORDERED: DOCUSATE SODIUM 100 MG CAPSULE PO PRN (19:51)
[2017-07-25] MEDS ORDERED: ALBUTEROL 2.5 MG/3 ML NEB RESP TX PRN (19:51)
[2017-07-25] MEDS ORDERED: NITROGLYCERIN SL 0.4 MG TABLET SL PRN (19:51)
[2017-07-25] MEDS ORDERED: SODIUM CHLORIDE 0.9% 1,000 ML IV SCH (19:51)
[2017-07-25] MEDS ORDERED: ACETAMINOPHEN 325 MG TABLET PO PRN (19:51)
[2017-07-25] MEDS ORDERED: ONDANSETRON 4 MG/2 ML VIAL IV PRN (19:51)
[2017-07-25] MEDS ORDERED: guaiFENesin/DM ER 600-30 MG TABLET PO PRN (19:51)
[2017-07-25] MEDS: LISINOPRIL 5 MG TABLET PO SCH (21:10)
[2017-07-25] MEDS: PREGABALIN 50 MG CAPSULE PO SCH (21:10)
[2017-07-25] MEDS: APIXABAN 5 MG TABLET PO SCH (21:10)
[2017-07-25] MEDS: OMEGA 3 ACID ETHYL ESTERS 1 GM CAPSULE PO SCH (21:10)
[2017-07-26 04:54] LABS: Basophils # 0.1 10*3/uL (0.0-0.2); Basophils % 0.7 % (0.0-0.8); Eosinophils # 0.3 10*3/uL (0.0-0.87); Hematocrit 39.2 VOL% (42.0-52.0); Hemoglobin 13.5 GM/DL (14.0-18.0); Immature Granulocytes % 0.3 %; Immature Granulocytes Absolute 0.02 #; Lymphocytes # 2.1 10*3/uL (1.4-4.0); Lymphocytes % 27.1 % (21.2-54.2); Mean Corpuscular HGB Conc 34.4 GM/DL (32-36); Mean Corpuscular Hemoglobin 32 PG (27-34); Mean Corpuscular Volume 93.8 FL (87-102); Monocytes # 0.9 10*3/uL (0.11-0.8); Monocytes % 11.2 % (1.7-12.7); Neutrophils # 4.3 10*3/uL (1.4-7.4); Neutrophils % 56.7 % (38.7-73.9); Platelet Count 235 T/CUMM (130-400); Red Blood Count 4.18 MC/CUMM (3.8-5.5); Red Cell Distribution Width 13.2 % (9.3-17.3); White Blood Count 7.6 T/CUMM (4-12)
[2017-07-26 05:15] LABS: Calcium 8.5 MG/DL (8.5-10.1); Osmolality,Calculated 284.1 MOS/KG (273-304); Potassium 4.8 MMOL/L (3.5-5.1)
[2017-07-26] MEDS ORDERED: PANTOPRAZOLE 40 MG TABLET PO SCH (09:00)
[2017-07-26] MEDS ORDERED: MAGNESIUM OXIDE 400 MG TABLET PO SCH (09:00)
[2017-07-26] MEDS ORDERED: NICOTINE 14 MG/24 HR PATCH TRANSDERM SCH (09:00)
[2017-07-26] MEDS ORDERED: ATORVASTATIN 40 MG TABLET PO SCH (09:00)
[2017-07-26] MEDS ORDERED: ZINC SULFATE 220 MG CAPSULE PO SCH (09:00)
[2017-07-26] MEDS ORDERED: TAMSULOSIN 0.4 MG CAPSULE PO SCH (09:00)
[2017-07-26] MEDS ORDERED: FINASTERIDE 5 MG TABLET PO SCH (09:00)
[2017-07-26] MEDS: OMEGA 3 ACID ETHYL ESTERS 1 GM CAPSULE PO SCH (09:30)
[2017-07-26] MEDS: APIXABAN 5 MG TABLET PO SCH (09:31)
[2017-07-26] MEDS: PREGABALIN 50 MG CAPSULE PO SCH (09:31)
[2017-07-26] MEDS: LISINOPRIL 5 MG TABLET PO SCH (09:31)
[2017-07-26 11:58] VITALS: BP 111/55
== END 2017-07-26 15:18 | disposition home or self-care (01) | DRG 312 ==
LOC: EDUNIT# → EDBD → N.ED 14:05 → N.EDINP 18:23 → N.TELEN 19:11
PROVIDERS: ADMIT Internal Medicine; ATTEND Internal Medicine

== ENCOUNTER 2020-12-04 04:01 | Inpatient (IN) ==
[2020-12-04] MEDS ORDERED: HYDROmorphone 2 MG/1 ML VIAL IV STA ×2 (04:44→07:29)
[2020-12-04] MEDS ORDERED: ONDANSETRON 4 MG/2 ML VIAL IV ONE (04:44)
[2020-12-04 05:17] LABS: Basophils # 0.1 10*3/uL (0.0-0.2); Basophils % 0.6 % (0.0-0.8); Eosinophils # 0.5 10*3/uL (0.0-0.87); Eosinophils % 4.2 % (0.00-10.9); Hematocrit 42.5 VOL% (42.0-52.0); Hemoglobin 14.9 GM/DL (14.0-18.0); Immature Granulocytes % 0.5 %; Immature Granulocytes Absolute 0.06 #; Lymphocytes # 2.2 10*3/uL (1.4-4.0); Lymphocytes % 18.7 % (21.2-54.2); Mean Corpuscular HGB Conc 35.1 GM/DL (32-36); Mean Corpuscular Volume 94.4 FL (87-102); Mean Platelet Volume 9.1 FL (9.6-12.0); Monocytes % 6.2 % (1.7-12.7); Neutrophils % 69.8 % (38.7-73.9); Platelet Count 214 T/CUMM (130-400); Red Cell Distribution Width 12.6 % (9.3-17.3); White Blood Count 11.9 T/CUMM (4-12)
[2020-12-04 05:37] LABS: Partial Thromboplastin Time 26.8 SECS (23.9-33.8)
[2020-12-04 06:43] LABS: Albumin 3.5 G/DL (3.4-5.0); Bilirubin,Total 1.4 MG/DL (0.2-1.0); Calcium 8.5 MG/DL (8.5-10.1); Osmolality,Calculated 283.5 MOS/KG (273-304); Potassium 3.8 MMOL/L (3.5-5.1); Total Protein 6.7 G/DL (5.0-7.5)
[2020-12-04] MEDS ORDERED: ASPIRIN CHEW 81 MG TABLET PO STA (07:26)
[2020-12-04] MEDS ORDERED: HEPARIN 5,000 UNIT/1 ML VIAL IV STA (07:26)
[2020-12-04] MEDS ORDERED: DIAZEPAM 5 MG TABLET PO STA (07:49)
[2020-12-04] MEDS ORDERED: diphenhydrAMINE CAP 50 MG CAPSULE PO STA (07:49)
[2020-12-04] MEDS ORDERED: diphenhydrAMINE CAP 25 MG CAPSULE ONE (07:51)
[2020-12-04] MEDS ORDERED: HYDROmorphone 2 MG/1 ML VIAL ONE (08:17)
[2020-12-04] MEDS ORDERED: MIDAZOLAM 2 MG/2 ML VIAL ONE (08:17)
[2020-12-04] MEDS ORDERED: LIDOCAINE 1% 20 ML VIAL ONE (08:36)
[2020-12-04] MEDS ORDERED: ALTEPLASE 24 MG in SODIUM CHLORIDE 0.9% 480 ML IV SCH (09:00)
[2020-12-04] MEDS ORDERED: HEPARIN 5,000 UNIT/1 ML VIAL ONE (09:01)
[2020-12-04] MEDS ORDERED: HEPARIN DRIP 25,000 UNITS/500 ML PREMIX IV ONE (09:05)
[2020-12-04 09:15] LABS: Bilirubin,Urine Negative (Negative); Blood, Urine Moderate mg/dL (Negative); Glucose,Urine (UA) Negative (Negative); Ketones,Urine Negative (Negative); Mucus,Urine Occasional /LPF (Occasional); Nitrite,Urine Negative (Negative); Protein,Urine Negative; RBC,Urine 7 /HPF (0-4); Urine Appearance CLEAR (Clear); Urine Color Yellow (Yellow); Urine Specific Gravity 1.028 (1.001-1.035); Urine Urobilinogen < 2.0 EU/DL (0.2-1.0)
[2020-12-04] MEDS ORDERED: ALTEPLASE 2 MG VIAL ONE (09:21)
[2020-12-04] MEDS: HEPARIN DRIP 25,000 UNITS/500 ML PREMIX IV SCH (10:11)
[2020-12-04] MEDS: SODIUM CHLORIDE 0.9% 1,000 ML IV SCH (10:12)
[2020-12-04 10:30] LABS: INR 1.1; PT Patient Result 11.6 SECS (9.8-11.9); Partial Thromboplastin Time 55.5 SECS (23.9-33.8)
[2020-12-04 16:38] LABS: INR 1.1; PT Patient Result 11.7 SECS (9.8-11.9)
[2020-12-04] MEDS ORDERED: FUROSEMIDE 40 MG TABLET PO PRN (17:04)
[2020-12-04] MEDS ORDERED: diphenhydrAMINE CAP 25 MG CAPSULE PO PRN (17:06)
[2020-12-04 22:14] LABS: Partial Thromboplastin Time 42.4 SECS (23.9-33.8)
[2020-12-05] MEDS: METOPROLOL SUCCINATE XL 25 MG TABLET PO SCH ×3 (01:08→22:10)
[2020-12-05] MEDS: MAGNESIUM OXIDE 400 MG TABLET PO SCH ×3 (01:08→23:04)
[2020-12-05] MEDS: OMEGA 3 ACID ETHYL ESTERS 1 GM CAPSULE PO SCH ×3 (01:08→23:04)
[2020-12-05] MEDS: PREGABALIN 50 MG CAPSULE PO SCH ×4 (01:08→23:05)
[2020-12-05 04:45] LABS: Basophils % 0.2 % (0.0-0.8); Eosinophils # 0.1 10*3/uL (0.0-0.87); Eosinophils % 0.6 % (0.00-10.9); Hematocrit 39.6 VOL% (42.0-52.0); Hemoglobin 13.4 GM/DL (14.0-18.0); Immature Granulocytes % 0.4 %; Immature Granulocytes Absolute 0.05 #; Lymphocytes # 1.5 10*3/uL (1.4-4.0); Lymphocytes % 12.2 % (21.2-54.2); Mean Corpuscular HGB Conc 33.8 GM/DL (32-36); Mean Corpuscular Volume 95.9 FL (87-102); Mean Platelet Volume 9.5 FL (9.6-12.0); Monocytes % 8.9 % (1.7-12.7); Neutrophils % 77.7 % (38.7-73.9); Platelet Count 196 T/CUMM (130-400); Red Blood Count 4.13 MC/CUMM (3.8-5.5); Red Cell Distribution Width 12.7 % (9.3-17.3); White Blood Count 12.6 T/CUMM (4-12)
[2020-12-05 04:52] LABS: INR 1.1; PT Patient Result 11.6 SECS (9.8-11.9)
[2020-12-05 05:07] LABS: Calcium 8.3 MG/DL (8.5-10.1); Osmolality,Calculated 278.5 MOS/KG (273-304)
[2020-12-05] MEDS: SODIUM CHLORIDE 0.9% 1,000 ML IV SCH (08:30)
[2020-12-05] MEDS ORDERED: FINASTERIDE 5 MG TABLET PO SCH (09:00)
[2020-12-05] MEDS ORDERED: TAMSULOSIN 0.4 MG CAPSULE PO SCH (09:00)
[2020-12-05 09:54] LABS: Partial Thromboplastin Time 27.5 SECS (23.9-33.8)
[2020-12-05] MEDS: DONEPEZIL 10 MG TABLET PO SCH (10:05)
[2020-12-05] MEDS: FLUTICASONE 50 MCG NASAL SPRAY 16 GM BOTTLE BOTH NARES SCH (10:06)
[2020-12-05] MEDS: LORATADINE 10 MG TABLET PO SCH (10:06)
[2020-12-05] MEDS: HEPARIN DRIP 25,000 UNITS/500 ML PREMIX IV SCH (10:06)
[2020-12-05] MEDS: ATORVASTATIN 40 MG TABLET PO SCH (10:06)
[2020-12-05] MEDS: ZINC SULFATE 220 MG CAPSULE PO SCH (10:07)
[2020-12-05] MEDS ORDERED: MIDAZOLAM 2 MG/2 ML VIAL IV ONE (14:17)
[2020-12-05] MEDS ORDERED: HYDROmorphone 2 MG/1 ML VIAL IV ONE (14:17)
[2020-12-05] MEDS ORDERED: HYDROmorphone 2 MG/1 ML VIAL ONE (16:18)
[2020-12-05] MEDS ORDERED: MIDAZOLAM 2 MG/2 ML VIAL ONE (16:18)
[2020-12-05] MEDS ORDERED: LIDOCAINE 1% 20 ML VIAL ONE (16:18)
[2020-12-05 22:10] LABS: Partial Thromboplastin Time 39.3 SECS (23.9-33.8)
[2020-12-05] MEDS: APIXABAN 5 MG TABLET PO SCH (23:03)
[2020-12-06 04:26] LABS: Basophils % 0.3 % (0.0-0.8); Eosinophils # 0.1 10*3/uL (0.0-0.87); Hematocrit 41.9 VOL% (42.0-52.0); Immature Granulocytes % 0.5 %; Immature Granulocytes Absolute 0.06 #; Lymphocytes # 1.7 10*3/uL (1.4-4.0); Lymphocytes % 13.6 % (21.2-54.2); Mean Corpuscular HGB Conc 33.4 GM/DL (32-36); Monocytes % 10.1 % (1.7-12.7); Neutrophils % 74.5 % (38.7-73.9); Platelet Count 178 T/CUMM (130-400); Red Blood Count 4.32 MC/CUMM (3.8-5.5); Red Cell Distribution Width 12.4 % (9.3-17.3); White Blood Count 12.8 T/CUMM (4-12)
[2020-12-06 04:59] LABS: Calcium 8.5 MG/DL (8.5-10.1); Osmolality,Calculated 276.7 MOS/KG (273-304)
[2020-12-06] MEDS: METOPROLOL SUCCINATE XL 25 MG TABLET PO SCH (08:18)
[2020-12-06] MEDS: OMEGA 3 ACID ETHYL ESTERS 1 GM CAPSULE PO SCH ×2 (08:19→21:46)
[2020-12-06] MEDS: PREGABALIN 50 MG CAPSULE PO SCH ×3 (08:19→21:47)
[2020-12-06] MEDS: APIXABAN 5 MG TABLET PO SCH ×2 (08:19→21:46)
[2020-12-06] MEDS: ZINC SULFATE 220 MG CAPSULE PO SCH (08:19)
[2020-12-06] MEDS: ATORVASTATIN 40 MG TABLET PO SCH (08:19)
[2020-12-06] MEDS: MAGNESIUM OXIDE 400 MG TABLET PO SCH ×2 (08:19→21:46)
[2020-12-06] MEDS: DONEPEZIL 10 MG TABLET PO SCH (08:20)
[2020-12-06] MEDS: LORATADINE 10 MG TABLET PO SCH (08:20)
[2020-12-06] MEDS: FLUTICASONE 50 MCG NASAL SPRAY 16 GM BOTTLE BOTH NARES SCH (08:20)
[2020-12-06] MEDS: METOPROLOL SUCCINATE XL 100 MG TABLET PO SCH ×2 (10:52→21:46)
[2020-12-07 05:26] LABS: Basophils % 0.2 % (0.0-0.8); Eosinophils # 0.3 10*3/uL (0.0-0.87); Hematocrit 39.2 VOL% (42.0-52.0); Hemoglobin 13.2 GM/DL (14.0-18.0); Immature Granulocytes % 0.3 %; Immature Granulocytes Absolute 0.04 #; Lymphocytes # 1.7 10*3/uL (1.4-4.0); Lymphocytes % 11.8 % (21.2-54.2); Mean Corpuscular HGB Conc 33.7 GM/DL (32-36); Mean Corpuscular Volume 97.3 FL (87-102); Mean Platelet Volume 9.7 FL (9.6-12.0); Monocytes % 10.5 % (1.7-12.7); Neutrophils % 75.2 % (38.7-73.9); Platelet Count 205 T/CUMM (130-400); Red Blood Count 4.03 MC/CUMM (3.8-5.5); Red Cell Distribution Width 12.4 % (9.3-17.3); White Blood Count 14.1 T/CUMM (4-12)
[2020-12-07 05:57] LABS: Calcium 8.5 MG/DL (8.5-10.1); Osmolality,Calculated 277.7 MOS/KG (273-304); Potassium 4.1 MMOL/L (3.5-5.1)
[2020-12-07] MEDS: MAGNESIUM OXIDE 400 MG TABLET PO SCH ×2 (08:40→20:54)
[2020-12-07] MEDS: OMEGA 3 ACID ETHYL ESTERS 1 GM CAPSULE PO SCH ×2 (08:41→20:54)
[2020-12-07] MEDS: DONEPEZIL 10 MG TABLET PO SCH (08:41)
[2020-12-07] MEDS: METOPROLOL SUCCINATE XL 100 MG TABLET PO SCH ×2 (08:41→20:54)
[2020-12-07] MEDS: ZINC SULFATE 220 MG CAPSULE PO SCH (08:41)
[2020-12-07] MEDS: PREGABALIN 50 MG CAPSULE PO SCH ×3 (08:42→20:54)
[2020-12-07] MEDS: ATORVASTATIN 40 MG TABLET PO SCH (08:42)
[2020-12-07] MEDS: LORATADINE 10 MG TABLET PO SCH (08:42)
[2020-12-07] MEDS: APIXABAN 5 MG TABLET PO SCH ×2 (08:42→20:54)
[2020-12-07] MEDS: FLUTICASONE 50 MCG NASAL SPRAY 16 GM BOTTLE BOTH NARES SCH (08:43)
[2020-12-08 06:04] LABS: Basophils # 0.1 10*3/uL (0.0-0.2); Basophils % 0.5 % (0.0-0.8); Eosinophils # 0.5 10*3/uL (0.0-0.87); Eosinophils % 5.2 % (0.00-10.9); Hematocrit 36.2 VOL% (42.0-52.0); Hemoglobin 12.3 GM/DL (14.0-18.0); Immature Granulocytes % 0.5 %; Immature Granulocytes Absolute 0.05 #; Lymphocytes # 2.1 10*3/uL (1.4-4.0); Lymphocytes % 19.7 % (21.2-54.2); Mean Corpuscular Volume 95.5 FL (87-102); Mean Platelet Volume 9.4 FL (9.6-12.0); Monocytes % 10.9 % (1.7-12.7); Neutrophils % 63.2 % (38.7-73.9); Platelet Count 214 T/CUMM (130-400); Red Blood Count 3.79 MC/CUMM (3.8-5.5); Red Cell Distribution Width 12.4 % (9.3-17.3); White Blood Count 10.4 T/CUMM (4-12)
[2020-12-08 06:32] LABS: Calcium 8.3 MG/DL (8.5-10.1); Osmolality,Calculated 280.4 MOS/KG (273-304)
[2020-12-08] MEDS: OMEGA 3 ACID ETHYL ESTERS 1 GM CAPSULE PO SCH ×2 (09:25→21:19)
[2020-12-08] MEDS: PREGABALIN 25 MG CAPSULE PO SCH ×3 (09:25→21:19)
[2020-12-08] MEDS: ZINC SULFATE 220 MG CAPSULE PO SCH (09:26)
[2020-12-08] MEDS: APIXABAN 5 MG TABLET PO SCH ×2 (09:26→21:19)
[2020-12-08] MEDS: FLUTICASONE 50 MCG NASAL SPRAY 16 GM BOTTLE BOTH NARES SCH (09:26)
[2020-12-08] MEDS: ATORVASTATIN 40 MG TABLET PO SCH (09:26)
[2020-12-08] MEDS: METOPROLOL SUCCINATE XL 100 MG TABLET PO SCH ×2 (09:26→21:19)
[2020-12-08] MEDS: LORATADINE 10 MG TABLET PO SCH (09:26)
[2020-12-08] MEDS: DONEPEZIL 10 MG TABLET PO SCH (09:26)
[2020-12-08] MEDS: MAGNESIUM OXIDE 400 MG TABLET PO SCH ×2 (09:26→21:19)
[2020-12-08] MEDS ORDERED: DIGOXIN 0.5 MG/2 ML AMP IV ONE (13:08)
[2020-12-08] MEDS: DOCUSATE SODIUM 100 MG CAPSULE PO PRN (18:30)
[2020-12-08] MEDS: ASCORBIC ACID 500 MG TABLET PO SCH (21:19)
[2020-12-09] MEDS: PREGABALIN 25 MG CAPSULE PO SCH ×3 (09:10→21:42)
[2020-12-09] MEDS: ATORVASTATIN 40 MG TABLET PO SCH (09:10)
[2020-12-09] MEDS: DOCUSATE SODIUM 100 MG CAPSULE PO PRN (09:10)
[2020-12-09] MEDS: LORATADINE 10 MG TABLET PO SCH (09:10)
[2020-12-09] MEDS: ZINC SULFATE 220 MG CAPSULE PO SCH (09:10)
[2020-12-09] MEDS: METOPROLOL SUCCINATE XL 100 MG TABLET PO SCH ×2 (09:10→21:42)
[2020-12-09] MEDS: APIXABAN 5 MG TABLET PO SCH ×2 (09:10→21:42)
[2020-12-09] MEDS: ASCORBIC ACID 500 MG TABLET PO SCH ×2 (09:10→21:42)
[2020-12-09] MEDS: DONEPEZIL 10 MG TABLET PO SCH (09:10)
[2020-12-09] MEDS: OMEGA 3 ACID ETHYL ESTERS 1 GM CAPSULE PO SCH ×2 (09:11→21:42)
[2020-12-09] MEDS: MAGNESIUM OXIDE 400 MG TABLET PO SCH ×2 (09:11→21:42)
[2020-12-09] MEDS: FLUTICASONE 50 MCG NASAL SPRAY 16 GM BOTTLE BOTH NARES SCH (09:13)
[2020-12-09] MEDS: BISACODYL 5 MG TABLET PO PRN (18:18)
[2020-12-10] MEDS: DONEPEZIL 10 MG TABLET PO SCH (09:15)
[2020-12-10] MEDS: METOPROLOL SUCCINATE XL 100 MG TABLET PO SCH ×2 (09:15→21:50)
[2020-12-10] MEDS: OMEGA 3 ACID ETHYL ESTERS 1 GM CAPSULE PO SCH ×2 (09:15→21:50)
[2020-12-10] MEDS: LORATADINE 10 MG TABLET PO SCH (09:15)
[2020-12-10] MEDS: ASCORBIC ACID 500 MG TABLET PO SCH ×2 (09:15→21:50)
[2020-12-10] MEDS: ZINC SULFATE 220 MG CAPSULE PO SCH (09:16)
[2020-12-10] MEDS: APIXABAN 5 MG TABLET PO SCH ×2 (09:16→21:50)
[2020-12-10] MEDS: MAGNESIUM OXIDE 400 MG TABLET PO SCH ×2 (09:16→21:50)
[2020-12-10] MEDS: PREGABALIN 25 MG CAPSULE PO SCH ×3 (09:16→21:50)
[2020-12-10] MEDS: ATORVASTATIN 40 MG TABLET PO SCH (09:16)
[2020-12-10] MEDS: FLUTICASONE 50 MCG NASAL SPRAY 16 GM BOTTLE BOTH NARES SCH (09:19)
[2020-12-11] MEDS: METOPROLOL SUCCINATE XL 100 MG TABLET PO SCH ×2 (08:17→23:04)
[2020-12-11] MEDS: OMEGA 3 ACID ETHYL ESTERS 1 GM CAPSULE PO SCH ×2 (08:17→23:05)
[2020-12-11] MEDS: DONEPEZIL 10 MG TABLET PO SCH (08:17)
[2020-12-11] MEDS: MAGNESIUM OXIDE 400 MG TABLET PO SCH ×2 (08:17→23:05)
[2020-12-11] MEDS: ASCORBIC ACID 500 MG TABLET PO SCH ×2 (08:17→23:00)
[2020-12-11] MEDS: ZINC SULFATE 220 MG CAPSULE PO SCH (08:17)
[2020-12-11] MEDS: LORATADINE 10 MG TABLET PO SCH (08:17)
[2020-12-11] MEDS: ATORVASTATIN 40 MG TABLET PO SCH (08:17)
[2020-12-11] MEDS: APIXABAN 5 MG TABLET PO SCH ×2 (08:17→23:02)
[2020-12-11] MEDS: PREGABALIN 25 MG CAPSULE PO SCH ×3 (08:18→22:58)
[2020-12-11] MEDS: FLUTICASONE 50 MCG NASAL SPRAY 16 GM BOTTLE BOTH NARES SCH (08:18)
[2020-12-11] MEDS: BISACODYL 5 MG TABLET PO PRN (15:08)
[2020-12-12 05:46] LABS: Basophils # 0.1 10*3/uL (0.0-0.2); Basophils % 0.6 % (0.0-0.8); Eosinophils # 0.9 10*3/uL (0.0-0.87); Eosinophils % 6.9 % (0.00-10.9); Hematocrit 42.7 VOL% (42.0-52.0); Hemoglobin 14.8 GM/DL (14.0-18.0); Immature Granulocytes % 0.6 %; Immature Granulocytes Absolute 0.08 #; Lymphocytes # 3.1 10*3/uL (1.4-4.0); Lymphocytes % 24.5 % (21.2-54.2); Mean Corpuscular HGB Conc 34.7 GM/DL (32-36); Mean Corpuscular Volume 93.4 FL (87-102); Monocytes % 11.4 % (1.7-12.7); Platelet Count 322 T/CUMM (130-400); Red Blood Count 4.57 MC/CUMM (3.8-5.5); Red Cell Distribution Width 12.3 % (9.3-17.3); White Blood Count 12.6 T/CUMM (4-12)
[2020-12-12 06:05] LABS: Osmolality,Calculated 278.5 MOS/KG (273-304); Potassium 3.7 MMOL/L (3.5-5.1)
[2020-12-12] MEDS: MAGNESIUM OXIDE 400 MG TABLET PO SCH (08:23)
[2020-12-12] MEDS: PREGABALIN 25 MG CAPSULE PO SCH ×2 (08:23→14:42)
[2020-12-12] MEDS: ASCORBIC ACID 500 MG TABLET PO SCH (08:23)
[2020-12-12] MEDS: ATORVASTATIN 40 MG TABLET PO SCH (08:24)
[2020-12-12] MEDS: METOPROLOL SUCCINATE XL 100 MG TABLET PO SCH (08:24)
[2020-12-12] MEDS: LORATADINE 10 MG TABLET PO SCH (08:24)
[2020-12-12] MEDS: APIXABAN 5 MG TABLET PO SCH (08:24)
[2020-12-12] MEDS: ZINC SULFATE 220 MG CAPSULE PO SCH (08:24)
[2020-12-12] MEDS: OMEGA 3 ACID ETHYL ESTERS 1 GM CAPSULE PO SCH (08:24)
[2020-12-12] MEDS: DONEPEZIL 10 MG TABLET PO SCH (08:24)
[2020-12-12] MEDS: FLUTICASONE 50 MCG NASAL SPRAY 16 GM BOTTLE BOTH NARES SCH (09:11)
[2020-12-12] MEDS ORDERED: DESITIN 4OZ/NYSTATIN 15 GRAM MIXTURE PASTE TOP SCH (09:30)
[2020-12-12 17:08] VITALS: BP 103/61
== END 2020-12-12 19:03 | DRG 252 ==
LOC: EDUNIT# → EDBD → N.ED 04:01 → N.ICU 09:29 → N.TELEN 12-07 11:06
PROVIDERS: ADMIT Internal Medicine Cardiovascular Disease; ATTEND Internal Medicine Cardiovascular Disease

== ENCOUNTER 2021-03-28 00:43 | Inpatient (IN) ==
[2021-03-28] MEDS ORDERED: CLINDAMYCIN INJ 900 MG/50 ML PREMIX IV STA (01:17)
[2021-03-28 02:07] LABS: Basophils # 0.1 10*3/uL (0.0-0.2); Basophils % 0.6 % (0.0-0.8); Eosinophils # 0.7 10*3/uL (0.0-0.87); Eosinophils % 5.2 % (0.00-10.9); Hematocrit 38.7 VOL% (42.0-52.0); Hemoglobin 12.8 GM/DL (14.0-18.0); Immature Granulocytes % 0.4 %; Immature Granulocytes Absolute 0.05 #; Lymphocytes # 2.8 10*3/uL (1.4-4.0); Lymphocytes % 22.1 % (21.2-54.2); Mean Corpuscular HGB Conc 33.1 GM/DL (32-36); Mean Corpuscular Volume 95.1 FL (87-102); Mean Platelet Volume 9.6 FL (9.6-12.0); Monocytes % 10.4 % (1.7-12.7); Neutrophils % 61.3 % (38.7-73.9); Platelet Count 241 T/CUMM (130-400); Red Blood Count 4.07 MC/CUMM (3.8-5.5); Red Cell Distribution Width 12.9 % (9.3-17.3); White Blood Count 12.6 T/CUMM (4-12)
[2021-03-28 02:26] LABS: Albumin 3.3 G/DL (3.4-5.0); Bilirubin,Total 0.4 MG/DL (0.20-1.00); Calcium 8.5 MG/DL (8.5-10.1); Osmolality,Calculated 286.8 MOS/KG (273-304); Potassium 3.9 MMOL/L (3.5-5.1); Total Protein 6.8 G/DL (6.4-8.2)
[2021-03-28] MEDS ORDERED: GLUCAGON 1 MG VIAL IM PRN (04:53)
[2021-03-28] MEDS ORDERED: MORPHINE 2 MG/1 ML SYRINGE IV PRN (04:53)
[2021-03-28] MEDS ORDERED: ONDANSETRON 4 MG/2 ML VIAL IV PRN (04:53)
[2021-03-28] MEDS ORDERED: DEXTROSE 50% 25 GM/50 ML VIAL IV PRN (04:53)
[2021-03-28] MEDS: PIPERACILLIN/TAZOBACTAM 3,375 MG in SODIUM CHLORIDE 0.9% 100 ML IV SCH ×3 (06:37→22:08)
[2021-03-28] MEDS: SODIUM CHLORIDE 0.9% 1,000 ML IV SCH ×2 (06:37→22:09)
[2021-03-28] MEDS: ENOXAPARIN 30 MG/0.3 ML SYRINGE SUBCUT SCH (08:58)
[2021-03-28] MEDS: CLINDAMYCIN INJ 600 MG/50 ML PREMIX IV SCH ×2 (10:34→19:38)
[2021-03-29] MEDS: CLINDAMYCIN INJ 600 MG/50 ML PREMIX IV SCH ×3 (02:18→17:38)
[2021-03-29] MEDS: PIPERACILLIN/TAZOBACTAM 3,375 MG in SODIUM CHLORIDE 0.9% 100 ML IV SCH ×3 (05:15→21:03)
[2021-03-29 05:31] LABS: Basophils # 0.1 10*3/uL (0.0-0.2); Basophils % 0.9 % (0.0-0.8); Eosinophils # 0.6 10*3/uL (0.0-0.87); Eosinophils % 7.1 % (0.00-10.9); Hemoglobin 13.1 GM/DL (14.0-18.0); Immature Granulocytes % 0.4 %; Immature Granulocytes Absolute 0.03 #; Lymphocytes # 2.3 10*3/uL (1.4-4.0); Lymphocytes % 29.5 % (21.2-54.2); Mean Corpuscular HGB Conc 32.8 GM/DL (32-36); Mean Corpuscular Volume 94.8 FL (87-102); Mean Platelet Volume 9.5 FL (9.6-12.0); Monocytes % 11.4 % (1.7-12.7); Neutrophils % 50.7 % (38.7-73.9); Platelet Count 230 T/CUMM (130-400); Red Blood Count 4.22 MC/CUMM (3.8-5.5); Red Cell Distribution Width 12.9 % (9.3-17.3); White Blood Count 7.8 T/CUMM (4-12)
[2021-03-29 06:06] LABS: Calcium 8.8 MG/DL (8.5-10.1); Osmolality,Calculated 278.7 MOS/KG (273-304); Potassium 4.3 MMOL/L (3.5-5.1)
[2021-03-29] MEDS: ENOXAPARIN 30 MG/0.3 ML SYRINGE SUBCUT SCH (08:27)
[2021-03-29] MEDS: SODIUM CHLORIDE 0.9% 1,000 ML IV SCH (20:59)
[2021-03-29] MEDS: CHLORHEXIDINE 0.12% ORAL RINSE 60 ML BOTTLE SWISH/SPIT SCH (21:03)
[2021-03-30] MEDS: SODIUM CHLORIDE 0.9% 1,000 ML IV SCH ×3 (00:37→23:24)
[2021-03-30] MEDS: CLINDAMYCIN INJ 600 MG/50 ML PREMIX IV SCH ×3 (01:40→17:41)
[2021-03-30] MEDS: PIPERACILLIN/TAZOBACTAM 3,375 MG in SODIUM CHLORIDE 0.9% 100 ML IV SCH ×3 (05:05→23:18)
[2021-03-30 05:59] LABS: Basophils # 0.1 10*3/uL (0.0-0.2); Basophils % 0.9 % (0.0-0.8); Eosinophils # 0.6 10*3/uL (0.0-0.87); Eosinophils % 9.5 % (0.00-10.9); Hematocrit 38.1 VOL% (42.0-52.0); Hemoglobin 12.8 GM/DL (14.0-18.0); Immature Granulocytes % 0.4 %; Immature Granulocytes Absolute 0.03 #; Lymphocytes # 2.4 10*3/uL (1.4-4.0); Lymphocytes % 36.1 % (21.2-54.2); Mean Corpuscular HGB Conc 33.6 GM/DL (32-36); Mean Corpuscular Volume 93.6 FL (87-102); Mean Platelet Volume 9.6 FL (9.6-12.0); Monocytes % 9.6 % (1.7-12.7); Neutrophils % 43.5 % (38.7-73.9); Platelet Count 249 T/CUMM (130-400); Red Blood Count 4.07 MC/CUMM (3.8-5.5); Red Cell Distribution Width 12.8 % (9.3-17.3); White Blood Count 6.8 T/CUMM (4-12)
[2021-03-30 06:50] LABS: Calcium 8.6 MG/DL (8.5-10.1); Osmolality,Calculated 282.3 MOS/KG (273-304); Potassium 4.4 MMOL/L (3.5-5.1)
[2021-03-30] MEDS: ENOXAPARIN 30 MG/0.3 ML SYRINGE SUBCUT SCH (10:28)
[2021-03-30] MEDS: CHLORHEXIDINE 0.12% ORAL RINSE 60 ML BOTTLE SWISH/SPIT SCH ×2 (10:31→20:26)
[2021-03-30] MEDS ORDERED: LIDOCAINE 1%/EPI INJ 20 ML VIAL ONE (11:13)
[2021-03-30] MEDS ORDERED: LACTATED RINGERS 1,000 ML IV SCH (11:30)
[2021-03-30] MEDS ORDERED: fentaNYL 100 MCG/2 ML VIAL ONE (11:43)
[2021-03-30] MEDS ORDERED: ONDANSETRON 4 MG/2 ML VIAL ONE (12:02)
[2021-03-30] MEDS ORDERED: DEXAMETHASONE 4 MG/1 ML VIAL ONE (12:03)
[2021-03-30] MEDS ORDERED: GLYCOPYRROLATE 0.4 MG/2 ML VIAL ONE (12:09)
[2021-03-30] MEDS ORDERED: NEOSTIGMINE 10 MG/10 ML VIAL ONE (12:09)
[2021-03-30] MEDS ORDERED: LIDOCAINE 2% 5 ML VIAL ONE (12:10)
[2021-03-30] MEDS ORDERED: PHENYLEPHRINE 1 MG/10 ML SYRINGE IV ONE (12:10)
[2021-03-30] MEDS ORDERED: propofoL 200 MG/20 ML VIAL IV ONE (12:10)
[2021-03-30] MEDS ORDERED: SEVOFLURANE 1 UNIT/15 MINUTE INH ONE ×2 (12:11→12:34)
[2021-03-30] MEDS ORDERED: ROCURONIUM 50 MG/5 ML VIAL IV ONE (12:11)
[2021-03-31] MEDS: CLINDAMYCIN INJ 600 MG/50 ML PREMIX IV SCH ×2 (03:48→10:01)
[2021-03-31 08:40] VITALS: BP 133/87
[2021-03-31] MEDS: PIPERACILLIN/TAZOBACTAM 3,375 MG in SODIUM CHLORIDE 0.9% 100 ML IV SCH (08:49)
[2021-03-31] MEDS: ENOXAPARIN 30 MG/0.3 ML SYRINGE SUBCUT SCH (08:50)
[2021-03-31] MEDS: CHLORHEXIDINE 0.12% ORAL RINSE 60 ML BOTTLE SWISH/SPIT SCH (08:50)
== END 2021-03-31 10:40 | disposition home health service (06) | DRG 137 ==
LOC: EDBD → EDUNIT# → N.ED 00:43 → N.EDINP 04:53 → SUATTDRO 04:53 → N.5E 15:34
PROVIDERS: ADMIT Internal Medicine; ATTEND Emergency Medicine

== ENCOUNTER 2021-08-21 20:56 | Inpatient (IN) ==
[2021-08-21 22:01] LABS: Bilirubin,Urine Negative (Negative); Blood, Urine Negative (Negative); Glucose,Urine (UA) Negative (Negative); Granular Casts,Urine 1 /LPF (0-1); Ketones,Urine Negative (Negative); Mucus,Urine Occasional /LPF (Occasional); Nitrite,Urine Negative (Negative); Protein,Urine Negative; RBC,Urine 1 /HPF (0-4); Urine Appearance CLEAR (Clear); Urine Color Straw (Yellow); Urine Specific Gravity 1.004 (1.001-1.035); Urine Urobilinogen < 2.0 EU/DL (0.2-1.0)
[2021-08-21 22:02] LABS: Barbiturates Screen,Urine Negative (Negative); Benzodiazepines Screen,Urine Negative (Negative); Cannabinoid Screen,Urine Negative (Negative); Opiate Screen,Urine Negative (Negative); Phencyclidine Screen,Urine Negative (Negative)
[2021-08-21 22:54] LABS: Alanine Aminotransferase 17 U/L (16-61); Albumin 3.7 G/DL (3.4-5.0); Alkaline Phosphatase 50 U/L (45-117); Aspartate Amino Transferase 17 U/L (0-37); Blood Urea Nitrogen 20 MG/DL (7-18); Calcium 8.9 MG/DL (8.5-10.1); Carbon Dioxide 23 MMOL/L (21-32); Glucose 96 MG/DL (74-106); Osmolality,Calculated 283.3 MOS/KG (273-304); Potassium 4.3 MMOL/L (3.5-5.1); Sodium 141 MMOL/L (136-145); Total Protein 6.9 G/DL (6.4-8.2)
[2021-08-21 22:57] LABS: Estimated Glom Filtration Rate 0 ML/MIN
[2021-08-21 23:21] LABS: Basophils # 0.1 10*3/uL (0.0-0.2); Basophils % 0.7 % (0.0-0.8); Eosinophils # 0.7 10*3/uL (0.0-0.87); Eosinophils % 6.5 % (0.00-10.9); Hematocrit 40.9 VOL% (42.0-52.0); Hemoglobin 13.5 GM/DL (14.0-18.0); Immature Granulocytes % 0.3 %; Immature Granulocytes Absolute 0.03 #; Lymphocytes # 3.2 10*3/uL (1.4-4.0); Lymphocytes % 31.4 % (21.2-54.2); Mean Platelet Volume 9.2 FL (9.6-12.0); Monocytes % 8.1 % (1.7-12.7); Platelet Count 244 T/CUMM (130-400); Red Blood Count 4.26 MC/CUMM (3.8-5.5); Red Cell Distribution Width 13.1 % (9.3-17.3); White Blood Count 10.1 T/CUMM (4-12)
[2021-08-21 23:33] LABS: INR 1.1; PT Patient Result 12.1 SECS (10.5-12.0); Partial Thromboplastin Time 30.2 SECS (23.8-32.1)
[2021-08-22] MEDS ORDERED: ENOXAPARIN 40 MG/0.4 ML SYRINGE SUBCUT SCH (07:00)
[2021-08-22 08:12] LABS: Basophils # 0.1 10*3/uL (0.0-0.2); Basophils % 0.6 % (0.0-0.8); Eosinophils # 0.5 10*3/uL (0.0-0.87); Eosinophils % 5.2 % (0.00-10.9); Hematocrit 38.4 VOL% (42.0-52.0); Hemoglobin 12.8 GM/DL (14.0-18.0); Immature Granulocytes % 0.4 %; Immature Granulocytes Absolute 0.04 #; Lymphocytes # 2.2 10*3/uL (1.4-4.0); Lymphocytes % 23.3 % (21.2-54.2); Mean Corpuscular HGB Conc 33.3 GM/DL (32-36); Mean Platelet Volume 8.9 FL (9.6-12.0); Monocytes % 9.1 % (1.7-12.7); Neutrophils % 61.4 % (38.7-73.9); Platelet Count 217 T/CUMM (130-400); White Blood Count 9.6 T/CUMM (4-12)
[2021-08-22 08:39] LABS: Albumin 3.3 G/DL (3.4-5.0); Bilirubin,Total 0.6 MG/DL (0.20-1.00); Calcium 8.7 MG/DL (8.5-10.1); Osmolality,Calculated 283.1 MOS/KG (273-304); Total Protein 6.1 G/DL (6.4-8.2)
[2021-08-22] MEDS ORDERED: NAPROXEN 500 MG TABLET PO PRN (14:15)
[2021-08-22] MEDS: DOCUSATE SODIUM 100 MG CAPSULE PO SCH (21:14)
[2021-08-22] MEDS: MEMANTINE 5 MG TABLET PO SCH (21:14)
[2021-08-22] MEDS: ASCORBIC ACID 500 MG TABLET PO SCH (21:14)
[2021-08-23] MEDS: ASCORBIC ACID 500 MG TABLET PO SCH ×3 (08:45→20:13)
[2021-08-23] MEDS: OMEGA 3 ACID ETHYL ESTERS 1 GM CAPSULE PO SCH ×2 (08:45→09:38)
[2021-08-23] MEDS: FLUTICASONE 50 MCG NASAL SPRAY 16 GM BOTTLE BOTH NARES SCH (08:45)
[2021-08-23] MEDS: MEMANTINE 5 MG TABLET PO SCH ×3 (08:45→20:13)
[2021-08-23] MEDS: METOPROLOL SUCCINATE XL 100 MG TABLET PO SCH ×2 (08:46→09:37)
[2021-08-23] MEDS: PANTOPRAZOLE 40 MG TABLET PO SCH ×2 (08:46→09:37)
[2021-08-23] MEDS: DONEPEZIL 10 MG TABLET PO SCH ×2 (08:46→09:41)
[2021-08-23] MEDS: FINASTERIDE 5 MG TABLET PO SCH ×2 (08:46→09:38)
[2021-08-23] MEDS: TAMSULOSIN 0.4 MG CAPSULE PO SCH ×2 (08:46→09:41)
[2021-08-23] MEDS: DOCUSATE SODIUM 100 MG CAPSULE PO SCH ×3 (08:46→20:13)
[2021-08-23] MEDS: LORATADINE 10 MG TABLET PO SCH ×2 (08:46→09:41)
[2021-08-23] MEDS ORDERED: ZIPRASIDONE 20 MG/1 ML VIAL IM ONE (10:56)
[2021-08-23] MEDS ORDERED: LORazepam 2 MG/1 ML VIAL IV PRN (11:54)
[2021-08-23 13:18] LABS: Basophils % 0.5 % (0.0-0.8); Eosinophils # 0.3 10*3/uL (0.0-0.87); Eosinophils % 4.1 % (0.00-10.9); Hematocrit 41.6 VOL% (42.0-52.0); Hemoglobin 13.5 GM/DL (14.0-18.0); Immature Granulocytes % 0.5 %; Immature Granulocytes Absolute 0.04 #; Lymphocytes # 2.1 10*3/uL (1.4-4.0); Lymphocytes % 24.9 % (21.2-54.2); Mean Corpuscular HGB Conc 32.5 GM/DL (32-36); Mean Corpuscular Volume 97.4 FL (87-102); Mean Platelet Volume 9.1 FL (9.6-12.0); Monocytes % 7.9 % (1.7-12.7); Neutrophils % 62.1 % (38.7-73.9); Platelet Count 237 T/CUMM (130-400); Red Blood Count 4.27 MC/CUMM (3.8-5.5); Red Cell Distribution Width 12.8 % (9.3-17.3); White Blood Count 8.4 T/CUMM (4-12)
[2021-08-23 13:47] LABS: Calcium 8.8 MG/DL (8.5-10.1); Osmolality,Calculated 278.5 MOS/KG (273-304); Potassium 4.1 MMOL/L (3.5-5.1)
[2021-08-23] MEDS ORDERED: ZIPRASIDONE 20 MG/1 ML VIAL IM PRN ×2 (17:00)
[2021-08-24 05:18] LABS: Basophils # 0.1 10*3/uL (0.0-0.2); Basophils % 0.5 % (0.0-0.8); Eosinophils # 0.6 10*3/uL (0.0-0.87); Eosinophils % 5.6 % (0.00-10.9); Hematocrit 43.2 VOL% (42.0-52.0); Hemoglobin 14.2 GM/DL (14.0-18.0); Immature Granulocytes % 0.4 %; Immature Granulocytes Absolute 0.04 #; Lymphocytes # 2.6 10*3/uL (1.4-4.0); Lymphocytes % 24.7 % (21.2-54.2); Mean Corpuscular HGB Conc 32.9 GM/DL (32-36); Mean Corpuscular Volume 97.7 FL (87-102); Mean Platelet Volume 9.6 FL (9.6-12.0); Monocytes % 9.2 % (1.7-12.7); Neutrophils % 59.6 % (38.7-73.9); Platelet Count 255 T/CUMM (130-400); Red Blood Count 4.42 MC/CUMM (3.8-5.5); Red Cell Distribution Width 12.7 % (9.3-17.3); White Blood Count 10.4 T/CUMM (4-12)
[2021-08-24 05:40] LABS: Calcium 9.1 MG/DL (8.5-10.1); Osmolality,Calculated 281.3 MOS/KG (273-304)
[2021-08-24 07:52] VITALS: BP 111/69
[2021-08-24] MEDS: ASCORBIC ACID 500 MG TABLET PO SCH (08:29)
[2021-08-24] MEDS: DONEPEZIL 10 MG TABLET PO SCH (08:29)
[2021-08-24] MEDS: FINASTERIDE 5 MG TABLET PO SCH (08:29)
[2021-08-24] MEDS: OMEGA 3 ACID ETHYL ESTERS 1 GM CAPSULE PO SCH (08:29)
[2021-08-24] MEDS: PANTOPRAZOLE 40 MG TABLET PO SCH (08:29)
[2021-08-24] MEDS: MEMANTINE 5 MG TABLET PO SCH (08:29)
[2021-08-24] MEDS: TAMSULOSIN 0.4 MG CAPSULE PO SCH (08:29)
[2021-08-24] MEDS: LORATADINE 10 MG TABLET PO SCH (08:30)
[2021-08-24] MEDS: METOPROLOL SUCCINATE XL 100 MG TABLET PO SCH (08:30)
[2021-08-24] MEDS: DOCUSATE SODIUM 100 MG CAPSULE PO SCH (08:30)
[2021-08-24] MEDS: FLUTICASONE 50 MCG NASAL SPRAY 16 GM BOTTLE BOTH NARES SCH (08:39)
== END 2021-08-24 11:30 | DRG 884 ==
LOC: EDUNIT# → EDBD → N.EDINP 20:56 → N.ED 20:56 → N.EDINP 08-22 06:07 → N.2E 08-22 06:19 → SUATTDRO 08-23 12:37
PROVIDERS: ADMIT Internal Medicine; ATTEND Internal Medicine